=== PATIENT | female | born 1935 | race Caucasian/White ===

== ENCOUNTER 2019-11-15 11:00 | Emergency (ER) | payer OTHER ==
[2019-11-15] MEDS ORDERED: LIDOCAINE 1% 20 ML MDV ONE (12:10)
--- NOTE | 2019-11-15 12:20 | RAD REPORT ---
EXAM DESCRIPTION: CT - Head Brain Wo Cont - 11/15/2019 12:12 pm CLINICAL HISTORY: Fall, right-sided head injury COMPARISON: None. TECHNIQUE: Axial 5 mm thick images of the head were obtained without IV contrast. All CT scans are performed using dose optimization technique as appropriate and may include automated exposure control or mA/KV adjustment according to patient size. FINDINGS: No intracranial hemorrhage, mass, edema or shift of mid-line structures. No acute infarcti on changes seen. No abnormal extra-axial fluid collections. Patient has a mild to moderate atrophy pa ttern with mild chronic ischemic change. Arterial tree calcifications are present. Mastoid air cells and visualized portions of the paranasal sinuses are clear. No skull fracture. Patient has soft tissue injury over the superior lateral margin of the right orbit al rim. IMPRESSION: Atrophy and chronic ischemic changes are present with no acute intracranial finding. Soft tissue injury superolateral right orbital rim with underlying bone intact. No globe or orbital c ontent injury.
--- NOTE | 2019-11-15 12:51 | ER ---
Nurse's Notes [facility] Name: Cecelia Ramires Age: 84 yrs Sex: Female : 1935 Arrival Date: 11/15/2019 Time: 11:01 Bed 9 Private MD: Diagnosis: Laceration with foreign body of right eyelid and periocular area Presentation: 11/15 11:12 Presenting complaint: Child states: was getting out of car, felt herself fall onto iw right side, hit right hip and right side of face and eyebrow area, laceration to right eyebrow area , also c/o throbbing pain, denies LOC, not on blood thinners , pt states she turned quickly and it happened so fast and couldn't stop herself from falling. Care prior to arrival: Injury dressed. Mechanism of Injury: Fall from standing position. Trauma event details: Injury occurred in the [facility]. 11:12 Acuity: WILMER 3 iw 11:12 Method Of Arrival: Wheelchair iw 11:16 Transition of care: patient was not received from another setting of care. Onset of iw symptoms was November 15, 2019. Risk Assessment: Do you want to hurt yourself or someone else? Patient reports no desire to harm self or others. Initial Sepsis Screen: Does the patient meet any 2 criteria? No. Patient's initial sepsis screen is negative. Does the patient have a suspected source of infection? No. Patient's initial sepsis screen is negative. Triage Assessment: 13:00 General: Appears in no apparent distress. Behavior is calm, cooperative. iw Trauma Activation: Not Applicable Physician: ED Physician; Name: ; Notified At: ; Arrived At: Physician: General Surgeon; Name: ; Notified At: ; Arrived At: Physician: Radiology; Name: ; Notified At: ; Arrived At: Physician: Respiratory; Name: ; Notified At: ; Arrived At: Physician: Lab; Name: ; Notified At: ; Arrived At: Historical: - Allergies: 11:15 No Known Allergies; iw - PMHx: 11:15 Hypothyroidism; Glaucoma; breast cancer; iw - PSHx: 11:15 Knee surgery; Hysterectomy; Appendectomy; Mastectomy, Right; Mastectomy, Left; iw - Immunization history:: Adult Immunizations Adult Immunizations up to date. - Coronavirus screen:: The patient has NOT traveled to [place], [place], or [place] in the past 14 days. Proceed with normal triage process as indicated. - Social history:: Smoking status: Patient denies any tobacco usage or history of. - Ebola Screening: : Patient negative for fever greater than or equal to 101.5 degrees Fahrenheit, and additional compatible Ebola Virus Disease symptoms Patient denies exposure to infectious person Patient denies travel to an Ebola-affected area in the 21 days before illness onset No symptoms or risks identified at this time. Screenin:26 Abuse screen: Denies threats or abuse. Denies injuries from another. Nutritional iw screening: No deficits noted. Tuberculosis screening: No symptoms or risk factors identified. Fall Risk Fall in past 12 months (25 points). Assessment: 12:00 General: Appears in no apparent distress. Behavior is calm, cooperative. Pain: iw Complains of pain in right eye and forehead. Neuro: Level of Consciousness is awake, alert, obeys commands, Oriented to person, place, time, situation, Moves all extremities. Full function. Cardiovascular: Patient's skin is warm and dry. Respiratory: Airway is patent Respiratory effort is even, unlabored. Derm: Skin is fragile, is thin. Musculoskeletal: Range of motion: intact in all extremities, Reports pain in right hip. Injury Description: Laceration sustained to inner aspect of right eyebrow, middle aspect of right eyebrow and outer aspect of right eyebrow is full thickness, 2.6 to 7.5 cm long, was sustained 1-2 hours ago. a small amount of bleeding noted at this time. Vital Signs: 11:15 BP 154 / 86; Pulse 70; Resp 16; Temp 98.7; Pulse Ox 95% on R/A; Weight 65.32 kg; Height iw 5 ft. 3 in. (160.02 cm); Pain 7/10; 11:15 Body Mass Index 25.51 (65.32 kg, 160.02 cm) iw Ravindra Coma Score: 11:15 Eye Response: spontaneous(4). Verbal Response: oriented(5). Motor Response: obeys iw commands(6). Total: 15. Trauma Score (Adult): 11:15 Eye Response: spontaneous(1); Verbal Response: oriented(1); Motor Response: obeys iw commands(2); Systolic BP: > 89 mm Hg(4); Respiratory Rate: 10 to 29 per min(4); Ravindra Score: 15; Trauma Score: 12 ED Course: 11:01 Patient arrived in ED. mr 11:14 Triage completed. iw 11:16 Arm band placed on. iw 11:30 Patient has correct armband on for positive identification. iw 11:54 Paula Jiang, RN is Primary Nurse. iw 11:59 Sanjeev Montiel PA is PHCP. jr8 11:59 Norm Smith MD is Attending Physician. jr8 12:00 Assist provider with laceration repair on outer aspect of right eyebrow and middle iw aspect of right eyebrow that was between 2.6 to 7.5 cm using sutures. Set up tray. Performed by Sanjeev WOODWARD Dressed with 4X4s, Neosporin, Patient tolerated well. Patient did not have IV access during this emergency room visit. 12:12 CT Head Brain wo Cont In Process Unspecified. EDMS 12:50 Tino Sepulveda MD is Referral Physician. jr8 Administered Medications: 13:12 Drug: Tetanus-Diphtheria Toxoid Adult 0.5 ml {Dope Pourer: [employer]. Exp: iw 12/25/2019. Lot #: [id number]. } Route: IM; Site: left deltoid; Outcome: 12:50 Discharge ordered by . jrMedardo 13:26 Discharged to home via wheelchair, with family. iw 13:26 Condition: good 13:26 Discharge instructions given to patient, family, Instructed on discharge instructions, follow up and referral plans. medication usage, Demonstrated understanding of instructions, follow-up care, medications, Prescriptions given X 1. 13:27 Patient left the ED. iw Signatures: Dispatcher [employer] [facility] Radha Duarte Paula Jiang, RN RN iw Sanjeev Montiel PA PA jr8 Corrections: (The following items were deleted from the chart) 11:20 11:12 Presenting complaint: Child states: was getting out of car, felt herself fall iw onto right side, hit right hip and right side of face and eyebrow area, also c/o throbbing pain above, denies LOC, not on blood thinners , pt states she turned quickly and it happened so fast and couldn't stop herself from falling iw
--- NOTE | 2019-11-15 12:51 | EDPHYS ---
Physician Documentation [facility] Name: Cecelia Ramires Age: 84 yrs Sex: Female : 1935 Arrival Date: 11/15/2019 Time: 11:01 Bed 9 Private MD: ED Physician Norm Smith HPI: 11/15 12:18 This 84 yrs old Female presents to ER via Wheelchair with complaints of Fall jr8 Injury, Head Injury Without LOC-Adult. 12:18 Details of fall: The patient fell from an upright position, while standing. Onset: The jr8 symptoms/episode began/occurred acutely, today. Associated injuries: The patient sustained injury to the head, laceration, 3 cm(s), of the forehead, pain, tenderness. Severity of symptoms: At their worst the symptoms were moderate, in the emergency department the symptoms have improved. The patient has not experienced similar symptoms in the past. The patient has not recently seen a physician. Stated that she slipped landing on right hip and hitting head. Denies LOC . Historical: - Allergies: 11:15 No Known Allergies; iw - PMHx: 11:15 Hypothyroidism; Glaucoma; breast cancer; iw - PSHx: 11:15 Knee surgery; Hysterectomy; Appendectomy; Mastectomy, Right; Mastectomy, Left; iw - Immunization history:: Adult Immunizations Adult Immunizations up to date. - Coronavirus screen:: The patient has NOT traveled to [place], [place], or [place] in the past 14 days. Proceed with normal triage process as indicated. - Social history:: Smoking status: Patient denies any tobacco usage or history of. - Ebola Screening: : Patient negative for fever greater than or equal to 101.5 degrees Fahrenheit, and additional compatible Ebola Virus Disease symptoms Patient denies exposure to infectious person Patient denies travel to an Ebola-affected area in the 21 days before illness onset No symptoms or risks identified at this time. ROS: 12:18 Eyes: Negative for injury, pain, redness, and discharge, ENT: Negative for injury, jr8 pain, and discharge, Neck: Negative for injury, pain, and swelling, Cardiovascular: Negative for chest pain, palpitations, and edema, Respiratory: Negative for shortness of breath, cough, wheezing, and pleuritic chest pain, Abdomen/GI: Negative for abdominal pain, nausea, vomiting, diarrhea, and constipation, Back: Negative for injury and pain, MS/Extremity: Negative for injury and deformity. 12:18 Skin: Positive for laceration(s). 12:18 Neuro: Positive for headache. Exam: 12:18 Eyes: Pupils equal round and reactive to light, extra-ocular motions intact. Lids and jr8 lashes normal. Conjunctiva and sclera are non-icteric and not injected. Cornea within normal limits. Periorbital areas with no swelling, redness, or edema. ENT: Nares patent. No nasal discharge, no septal abnormalities noted. Tympanic membranes are normal and external auditory canals are clear. Oropharynx with no redness, swelling, or masses, exudates, or evidence of obstruction, uvula midline. Mucous membranes moist. Neck: Trachea midline, no thyromegaly or masses palpated, and no cervical lymphadenopathy. Supple, full range of motion without nuchal rigidity, or vertebral point tenderness. No Meningismus. Cardiovascular: Regular rate and rhythm with a normal S1 and S2. No gallops, murmurs, or rubs. Normal PMI, no JVD. No pulse deficits. Respiratory: Lungs have equal breath sounds bilaterally, clear to auscultation and percussion. No rales, rhonchi or wheezes noted. No increased work of breathing, no retractions or nasal flaring. Abdomen/GI: Soft, non-tender, with normal bowel sounds. No distension or tympany. No guarding or rebound. No evidence of tenderness throughout. Back: No spinal tenderness. No costovertebral tenderness. Full range of motion. Skin: Warm, dry with normal turgor. Normal color with no rashes, no lesions, and no evidence of cellulitis. MS/ Extremity: Pulses equal, no cyanosis. Neurovascular intact. Full, normal range of motion. No pain with palpation to extremities. Large Hematoma noted to right greater tranchantor region. Patient able to ambulate with no pain Neuro: Awake and alert, GCS 15, oriented to person, place, time, and situation. Cranial nerves II-XII grossly intact. Motor strength 5/5 in all extremities. Sensory grossly intact. Cerebellar exam normal. Normal gait. 12:18 Head/face: Noted is a laceration(s), that is deep, 5 cm(s), of the right forehead above eyebrow . Vital Signs: 11:15 BP 154 / 86; Pulse 70; Resp 16; Temp 98.7; Pulse Ox 95% on R/A; Weight 65.32 kg; Height iw 5 ft. 3 in. (160.02 cm); Pain 7/10; 11:15 Body Mass Index 25.51 (65.32 kg, 160.02 cm) iw Ravindra Coma Score: 11:15 Eye Response: spontaneous(4). Verbal Response: oriented(5). Motor Response: obeys iw commands(6). Total: 15. Trauma Score (Adult): 11:15 Eye Response: spontaneous(1); Verbal Response: oriented(1); Motor Response: obeys iw commands(2); Systolic BP: > 89 mm Hg(4); Respiratory Rate: 10 to 29 per min(4); Ravindra Score: 15; Trauma Score: 12 Laceration: 12:49 Wound Repair of 5cm ( 2.0in ) subcutaneous laceration to forehead. Linear shaped.. jr8 Minimal bleeding noted.. Distal neuro/vascular/tendon intact. Anesthesia: Local anesthetic administered with 2 mls of 1% lidocaine. Wound prep: Extensive cleansing with hibiclenz, Particulate matter removal of glass by me, Wound explored extensively. Skin closed with 6 4-0 Prolene using interrupted sutures and sterile technique. Patient tolerated well. MDM: 11:59 Patient medically screened. jr8 12:49 Data reviewed: vital signs, nurses notes, radiologic studies, CT scan. Data jr8 interpreted: Pulse oximetry: on room air is 95 %. Interpretation: normal. Counseling: I had a detailed discussion with the patient and/or guardian regarding: the historical points, exam findings, and any diagnostic results supporting the discharge/admit diagnosis, radiology results, the need for outpatient follow up, a family practitioner, to return to the emergency department if symptoms worsen or persist or if there are any questions or concerns that arise at home. 12:49 Response to treatment: the patient's symptoms have markedly improved after treatment. jr8 13:40 ED course: Close return precautions given for right hip hematoma. Recommended ice jr8 multiple times throughout the day as needed for pain and swelling. Rest and elevated leg. 11/15 11:59 Order name: CT Head Brain wo Cont; Complete Time: 12:22 jr8 11/15 12:00 Order name: Prolene, Sutures; Complete Time: 13:13 jr8 11/15 12:00 Order name: Dressing - Wound; Complete Time: 13:11/15 12:00 Order name: Gloves, Sterile; Complete Time: :11/15 12:00 Order name: Setup Suture Tray; Complete Time: : Administered Medications: 13:12 Drug: Tetanus-Diphtheria Toxoid Adult 0.5 ml {[employer] Operator: [employer]. Exp: iw 12/25/2019. Lot #: [id number]. } Route: IM; Site: left deltoid; Disposition: 16:46 Co-signature as Attending Physician, Norm Smith MD I agree with the assessment and lan plan of care. Disposition: 11/15/19 12:50 Discharged to Home. Impression: Laceration with foreign body of right eyelid and periocular area. - Condition is Stable. - Discharge Instructions: Laceration Care, Adult, Facial Laceration. - Prescriptions for Keflex 500 mg Oral Capsule - take 1 capsule by ORAL route every 8 hours for 5 days; 15 capsule. - Medication Reconciliation Form, Thank You Letter, Antibiotic Education, Prescription Opioid Use form. - Follow up: Tino Sepulveda MD; When: 1 week; Reason: Wound Recheck, Recheck today's complaints, Continuance of care, Staple/Suture removal, Re-evaluation by your physician. - Problem is new. - Symptoms have improved. Signatures: Dispatcher [employer] Norm Almaguer MD MD cha Williams, Irene, Sanjeev Luz RN, PA PA jr8 Corrections: (The following items were deleted from the chart) 12:49 12:18 Head/face: Noted is a laceration(s), that is deep, 3 cm(s), of the right forehead jr8 above eyebrow , jr8 13:04 12:18 Eyes: Pupils equal round and reactive to light, extra-ocular motions intact. Lids jr8 and lashes normal. Conjunctiva and sclera are non-icteric and not injected. Cornea within normal limits. Periorbital areas with no swelling, redness, or edema. ENT: Nares patent. No nasal discharge, no septal abnormalities noted. Tympanic membranes are normal and external auditory canals are clear. Oropharynx with no redness, swelling, or masses, exudates, or evidence of obstruction, uvula midline. Mucous membranes moist. Neck: Trachea midline, no thyromegaly or masses palpated, and no cervical lymphadenopathy. Supple, full range of motion without nuchal rigidity, or vertebral point tenderness. No Meningismus. Cardiovascular: Regular rate and rhythm with a normal S1 and S2. No gallops, murmurs, or rubs. Normal PMI, no JVD. No pulse deficits. Respiratory: Lungs have equal breath sounds bilaterally, clear to auscultation and percussion. No rales, rhonchi or wheezes noted. No increased work of breathing, no retractions or nasal flaring. Abdomen/GI: Soft, non-tender, with normal bowel sounds. No distension or tympany. No guarding or rebound. No evidence of tenderness throughout. Back: No spinal tenderness. No costovertebral tenderness. Full range of motion. Skin: Warm, dry with normal turgor. Normal color with no rashes, no lesions, and no evidence of cellulitis. MS/ Extremity: Pulses equal, no cyanosis. Neurovascular intact. Full, normal range of motion. Neuro: Awake and alert, GCS 15, oriented to person, place, time, and situation. Cranial nerves II-XII grossly intact. Motor strength 5/5 in all extremities. Sensory grossly intact. Cerebellar exam normal. Normal gait. jr8 13:27 12:50 11/15/2019 12:50 Discharged to Home. Impression: Laceration with foreign body of iw right eyelid and periocular area. Condition is Stable. Forms are Medication Reconciliation Form, Thank You Letter, Antibiotic Education, Prescription Opioid Use. Follow up: Tino Sepulveda; When: 1 week; Reason: Wound Recheck, Recheck today's complaints, Continuance of care, Staple/Suture removal, Re-evaluation by your physician. Problem is new. Symptoms have improved. jr8
[2019-11-15] MEDS ORDERED: TETANUS & DIPHTHERIA TOX,ADULT 0.5 ML VIAL ONE (13:00)
[2019-11-15 13:31] VITALS: BP 154/86; TEMP 98.7; O2SAT 95
== END 2019-11-15 13:27 | disposition home or self-care (01) ==
LOC: ER 11:00
PROC: 0JQ10ZZ Repair Face Subcutaneous Tissue and Fascia, Open Approach (ICD-10-PCS; principal; 2019-11-15)
DX: S01.111A Laceration without foreign body of right eyelid and periocular area, initial encounter (principal); W18.00XA Striking against unspecified object with subsequent fall, initial encounter; Y93.89 Activity, other specified; Y92.9 Unspecified place or not applicable; Z23 Encounter for immunization
CPT/HCPCS: 70450; 90471; 90714; 99284

== ENCOUNTER 2023-06-21 19:31 | Emergency (ER) | payer OTHER ==
--- NOTE | 2023-06-21 20:41 | RAD REPORT ---
EXAM DESCRIPTION: CT - Head Brain Wo Cont - 06/21/2023 8:31 pm CLINICAL HISTORY: MENTAL STATUS CHANGE COMPARISON: Head Brain Wo Cont dated 11/15/2019 TECHNIQUE: All CT scans are performed using dose optimization technique as appropriate and may inclu de automated exposure control or mA/KV adjustment according to patient size. FINDINGS: No intracranial hemorrhage, hydrocephalus or extra-axial fluid collection.No areas of brai n edema or evidence of midline shift. Chronic small vessel ischemic changes and cerebral atrophy. The paranasal sinuses and mastoids are clear. The calvarium is intact. IMPRESSION: No acute intracranial abnormality.
--- NOTE | 2023-06-21 20:48 | RAD REPORT ---
EXAM DESCRIPTION: CTStone Protocol - 06/21/2023 8:33 pm CLINICAL HISTORY: Pain;Kidney stones COMPARISON: CT ABD PELVIS W CONTRAST dated 04/16/2009 TECHNIQUE: CT of the abdomen and pelvis was performed. All CT scans are performed using dose optimization technique as appropriate and may include automated exposure control or mA/KV adjustment according to patient size. FINDINGS: Lower chest: Mild right lower lobe bronchiectasis and pleural based thickening which may b e secondary to chronic aspiration. Small nonspecific pulmonary nodules are present. Coronary artery c alcifications. Aortic valve calcifications. Liver: Multiple liver masses identified. The largest is in the right hepatic lobe measuring 5.1 cm. O ther lesions noted with within the right and left hepatic lobe. One of the lesions is clearly benign but the others are most consistent with metastatic disease. Biliary: Cholelithiasis. No CT evidence of acute cholecystitis. Stomach: No significant focal abnormality. Duodenum: No significant focal abnormality. Pancreas: No significant abnormality. Spleen: No significant abnormality. Adrenal: No suspicious lesions. Kidney/ureter: No hydronephrosis. No renal calculi. Retroperitoneum: No retroperitoneal adenopathy. Vascular: No aneurysm. Bowel: Large rectal stool burden.. No bowel obstruction. Peritoneum: No ascites or free air. Small fat containing umbilical hernia. Bladder: Grossly unremarkable. Reproductive: Hysterectomy. 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 Other: n/a IMPRESSION: No acute intra-abdominal or pelvic finding. Moderate rectal stool burden could indicate fecal impaction. Osseous and hepatic metastatic disease identified. No recent/relevant priors available for comparison .
--- OUTSIDE RECORDS SUMMARY | 2023-06-21 20:59 | XMS REPORT | Continuity of Care Document ---
:1935 Author Organization [facility] t Address [address] [facility]. [address] [place] [address] Care Team Providers Name Role Phone Tino Shields Primary Care Physician Umberto Stevenson MD Attending Clinician Mahendra January Attending Clinician Unavailable Anuradha Arenas MD Attending Clinician ANURADHA ARENAS Attending Clinician Unavailable Doctor Unassigned, [place] Attending Clinician Unavailable ELIZABETH CURIEL Attending Clinician Unavailable Elizabeth Curiel PA-C Attending Clinician DANNA GAVIN Attending Clinician Unavailable APOLLO NOWAK Attending Clinician Unavailable JASS THOMPSON Attending Clinician Unavailable MD JASS THOMPSON Attending Clinician Unavailable JASS THOMPSON Admitting Clinician Unavailable MD JASS THOMPSON Admitting Clinician Unavailable Payers Payer Name Policy Type Policy Number Effective Date Expiration Date S ource Problems Condition Condition Condition Status Onset Resolution Last Treating Co mments Source Name Details Category Date Date Treatment Clinician Date Vaginal Vaginal Disease Active [facility] itching itching 06-28 00:00: [facility]osp[facility] 00 l Yeast Yeast Disease Active [facility] detected detected 06-28 00:00: Hospita 00 l Bronchiect Bronchiect Disease Active M ethodi asis asis 02-20 00:00: Hospita 00 l Pneumonia Pneumonia Disease Active 2021-0 [facility]-03 [facility] 00:00: [facility]ospita 00 l Metastatic Metastatic Disease Active M ethodi breast breast 5-03 st cancer cancer 00:00: Hospita 00 l Malignant Malignant Disease Active 2018-10 Met hodi neoplasm neoplasm 1-12 st of breast of breast 00:00: Hosp malena in female, in female, 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 Malignant Malignant Disease Active Met hodi neoplasm neoplasm 2-08 st metastatic metastatic 00:00: Ho spita to bone to bone 00 l No known No known Disease Unive rs active active ity of problems problems [facility] Allergies, Adverse Reactions, Alerts Allergy Allergy Status Severity Reaction(s) Onset Inactive Treating Comm ents Source Name Type Date Date Clinician NO KNOWN Drug Active Univers ALLERGIE Class ity of S [facility] Social History Social Habit Start Date Stop Date Quantity Comments Source Exposure to Not sure University of SARS-CoV-2 (event) [place] [facility] [place] History SDOH University o f Alcohol Frequency [facility] edical Branch History SDOH University o f Alcohol Std Drinks [facility] History SDOH University o f Alcohol Binge [place] [facility] History of tobacco Current smoker [facility] History of Social 2023-06-01 2023-06-[address] function 00:00:00 00:00:00 Hospital Alcohol intake 2023-05-14 2023-05-14 Current drinker [facility] dist 00:00:00 00:00:00 of [facility] (finding) Tobacco use and 2021-05-29 2021-05-29 Smokeless Universit y of exposure 00:00:00 00:00:00 tobacco non-user [facility] [place] dical [place] Alcohol Comment 2021-05-29 2021-05-29 one glass of Univers ity of 00:00:00 00:00:00 wine a day [facility] Cigarettes smoked 2018-09-02 2018-09-[address] current (pack per 00:00:00 00:00:00 Hospita l day) - Reported Cigarette 2018-09-02 2018-09-02 [facility] pack-years 00:00:00 00:00:00 Hospital Sex Assigned At [birth year] [facility] 00:00:00 00:00:00 Hospital Smoking Status Start Date Stop Date Source Never smoked tobacco [facility] Ex-smoker 2018-09-02 00:00:00 2018-09-02 00:00:00 [facility] Medications Ordered Filled Start Stop Current Ordering Indication Dosage Frequency Signature Comments Components Source Medication Medication Date Date Medication? Clinician (SIG) Name Name cephalexin 2020-10 Yes Methodi (KEFLEX) 2-23 st 500 MG 00:00: Hospita capsule 00 l cephALEXin 2020-101- No [id number] 500mg Take 1 Univers 500 mg 12-11-31 capsule by ity of capsule 00:00: 05:59 mouth [place] 00 :00 every 6 Medical (six) Branch hours for 7 days. sertraline 2020-10 Yes [facility] (ZOLOFT) 25 2-12 st MG tablet 00:00: Hospita 00 l sodium 2020-10 Yes Univers chloride 7% 1-19 ity of nebulizer 00:00: [place] solution 00 [facility] Branch sodium 2020-10 Yes Univers chloride 7% 1-19 ity of nebulizer 00:00: [place] solution 00 [facility] Branch sodium 2020-10 Yes Methodi chloride 1-19 st (HYPER-ALTAGRACIA) 00:00: Hospit a 7 % 00 l solution for nebulizatio n COMBIGAN Yes Univers 0.2-0.5 % 9-28 ity of ophthalmic 00:00: [place] drops 00 [facility] Branch colesevelam 0 Yes Univer s 625 mg 9-28 ity of tablet 00:00: [place] 00 Medical Branch COMBIGAN Yes Univers 0.2-0.5 % 9-28 ity of ophthalmic 00:00: [place] drops [facility] Branch colesevelam Yes Univer s 625 mg 9-28 ity of tablet 00:00: [place] 00 [facility] Branch fluconazole 2020- No [id number] 150mg Take 1 Univers 150 mg 9-10 09-15 tablet by ity of tablet 00:00: 04:59 mouth [place] 00 :00 every 72 Medical (seventy-t Branch wo) hours for 2 doses. fluconazole 2020- No [id number] 150mg Take 1 Univers 150 mg 9-10 09-15 tablet by ity of tablet 00:00: 04:59 mouth [place] 00 :00 every 72 Medical (seventy-t Branch wo) hours for 2 doses. fluconazole 2020-2020- No [id number] 150mg Take 1 Univers 150 mg 9-10 09-15 tablet by ity of tablet 00:00: 04:59 mouth [place] 00 :00 every 72 Medical (seventy-t Branch wo) hours for 2 doses. amLODIPine 2020-0 2020- No 5mg Take 5 mg U nivers 2.5 mg 8-18 08-18 by mouth. ity of tablet 22:07: 00:00 [place] 02 :00 Medical Branch amLODIPine 2020-0 2020- No 5mg Take 5 mg U nivers 2.5 mg 8-18 08-18 by mouth. ity of tablet 22:07: 00:00 [place] 02 :00 Medical Branch nystatin 2020-0 Yes [id number] Apply to U nivers 100,000 8-11 area(s) 2 ity of unit/gram 00:00: (two) [place] cream 00 times Medical daily. Branch fluconazole Yes TAKE 1 Univ ers 150 mg 8-11 TABLET BY ity of tablet 00:00: MOUTH ONCE [place] 00 NOW FOR 1 Medical DOSE. Branch SERTraline 0 Yes Univers 25 mg 8-11 ity of tablet 00:00: [place] 00 Medical Branch nystatin 2020-0 Yes [id number] Apply to U nivers 100,000 8-11 area(s) 2 ity of unit/gram 00:00: (two) [place] cream 00 times Medical daily. Branch fluconazole 2020-0 Yes TAKE 1 Univ ers 150 mg 8-11 TABLET BY ity of tablet 00:00: MOUTH ONCE [place] 00 NOW FOR 1 Medical DOSE. Branch SERTraline 2020-0 Yes Univers 25 mg 8-11 ity of tablet 00:00: [place] 00 Medical Branch nystatin 2020-0 Yes [id number] Apply to U nivers 100,000 8-11 area(s) 2 ity of unit/gram 00:00: (two) [place] cream 00 times Medical daily. Branch nystatin 2020-0 Yes [id number] Apply to U nivers 100,000 8-11 area(s) 2 ity of unit/gram 00:00: (two) [place] cream 00 times Medical daily. Branch nystatin 2020-0 Yes [id number] Apply to U nivers 100,000 8-11 area(s) 2 ity of unit/gram 00:00: (two) [place] cream 00 times Medical daily. Branch fluconazole 2020-0 Yes TAKE 1 Univ ers 150 mg 8-11 TABLET BY ity of tablet 00:00: MOUTH ONCE [place] 00 NOW FOR 1 Medical DOSE. Branch SERTraline 2020-0 Yes Univers 25 mg 8-11 ity of tablet 00:00: [place] 00 Medical Branch nystatin 1-0 Yes [id number] Apply to U nivers 100,000 8-11 area(s) 2 ity of unit/gram 00:00: (two) [place] cream 00 times Medical daily. Branch fluconazole 2020-0 Yes TAKE 1 Univ ers 150 mg 8-11 TABLET BY ity of tablet 00:00: MOUTH ONCE [place] 00 NOW FOR 1 Medical DOSE. Branch SERTraline 2020-0 Yes Univers 25 mg 8-11 ity of tablet 00:00: [place] 00 Medical Branch nystatin 2020-0 Yes [id number] Apply to U nivers 100,000 8-11 area(s) 2 ity of unit/gram 00:00: (two) [place] cream 00 times Medical daily. Branch fluconazole 2020-0 Yes TAKE 1 Univ ers 150 mg 8-11 TABLET BY ity of tablet 00:00: MOUTH ONCE [place] 00 NOW FOR 1 Medical DOSE. Branch SERTraline 2020-0 Yes Univers 25 mg 8-11 ity of tablet 00:00: [place] 00 Medical Branch nystatin 1-0 Yes [id number] Apply to U nivers 100,000 8-11 area(s) 2 ity of unit/gram 00:00: (two) [place] cream 00 times Medical daily. Branch fluconazole 2020-0 Yes TAKE 1 Univ ers 150 mg 8-11 TABLET BY ity of tablet 00:00: MOUTH ONCE [place] 00 NOW FOR 1 Medical DOSE. Branch SERTraline 2020-0 Yes Univers 25 mg 8-11 ity of tablet 00:00: [place] 00 Medical Branch nystatin 2021-0 Yes [id number] Apply to U nivers 100,000 8-11 area(s) 2 ity of unit/gram 00:00: (two) [place] cream 00 times Medical daily. Branch fluconazole 2020-0 Yes TAKE 1 Univ ers 150 mg 8-11 TABLET BY ity of tablet 00:00: MOUTH ONCE [place] 00 NOW FOR 1 Medical DOSE. Branch SERTraline 2021-0 Yes Univers 25 mg 8-11 ity of tablet 00:00: [place] 00 Medical Branch nystatin 2020-0 Yes [id number] Apply to U nivers 100,000 8-11 area(s) 2 ity of unit/gram 00:00: (two) [place] cream 00 times Medical daily. Branch fluconazole 2020-0 Yes TAKE 1 Univ ers 150 mg 8-11 TABLET BY ity of tablet 00:00: MOUTH ONCE [place] 00 NOW FOR 1 Medical DOSE. Branch SERTraline 2020-0 Yes Univers 25 mg 8-11 ity of tablet 00:00: [place] 00 Medical Branch nystatin 2020-0 Yes [id number] Apply to U nivers 100,000 8-11 area(s) 2 ity of unit/gram 00:00: (two) [place] cream 00 times Medical daily. Branch fluconazole 2020-0 Yes TAKE 1 Univ ers 150 mg 8-11 TABLET BY ity of tablet 00:00: MOUTH ONCE [place] 00 NOW FOR 1 Medical DOSE. Branch SERTraline 2020-0 Yes Univers 25 mg 8-11 ity of tablet 00:00: [place] 00 Medical Branch nystatin 2020-0 Yes [id number] Apply to U nivers 100,000 8-11 area(s) 2 ity of unit/gram 00:00: (two) [place] cream 00 times Medical daily. Branch fluconazole 2020-0 Yes TAKE 1 Univ ers 150 mg 8-11 TABLET BY ity of tablet 00:00: MOUTH ONCE [place] NOW FOR 1 Medical DOSE. Branch SERTraline 2020-0 Yes Univers 25 mg 8-11 ity of tablet 00:00: [place] 00 Medical Branch nystatin 2020-0 Yes [id number] Apply to U nivers 100,000 8-11 area(s) 2 ity of unit/gram 00:00: (two) [place] cream 00 times Medical daily. Branch fluconazole 2020-0 Yes TAKE 1 Univ ers 150 mg 8-11 TABLET BY ity of tablet 00:00: MOUTH ONCE [place] 00 NOW FOR 1 Medical DOSE. Branch SERTraline 2020-0 Yes Univers 25 mg 8-11 ity of tablet 00:00: [place] 00 Medical Branch nystatin 202-0 Yes [id number] Apply to U nivers 100,000 8-11 area(s) 2 ity of unit/gram 00:00: (two) [place] cream 00 times Medical daily. Branch fluconazole 2021-0 Yes TAKE 1 Univ ers 150 mg 8-11 TABLET BY ity of tablet 00:00: MOUTH ONCE [place] 00 NOW FOR 1 Medical DOSE. Branch SERTraline Yes Univers 25 mg 8-11 ity of tablet 00:00: [place] 00 Medical Branch nystatin Yes [id number] Apply to [facility] 100,000 8-11 area(s) 2 ity of unit/gram 00:00: (two) [place] cream 00 times Medical daily. Branch fluconazole Yes TAKE 1 Univ ers 150 mg 8-11 TABLET BY ity of tablet 00:00: MOUTH ONCE [place] 00 NOW FOR 1 Medical DOSE. Branch SERTraline Yes Univers 25 mg 8-11 ity of tablet 00:00: [place] 00 Medical Branch fluconazole Yes TAKE 1 Meth malena (DIFLUCAN) 8-[address] 150 MG 00:00: MOUTH ONCE Hospi ta tablet 00 NOW FOR 1 l DOSE. nystatin Yes Apply Methodi (MYCOSTATIN 8-[address] ) 100,000 00:00: Hospita unit/gram 00 l cream fluconazole 1- No [id number] 150mg Take 1 Univers 150 mg 8-11 08-12 tablet by ity of tablet 00:00: 04:59 [place] 00 :[place] now for 1 Medical dose. Branch fluconazole 2020- No [id number] 150mg Take 1 Univers 150 mg 8-11 08-12 tablet by ity of tablet 00:00: 04:59 [place] 00 :[place] now for 1 Medical dose. Branch tamoxifen Yes TAKE 1 Univer s 20 mg 8-05 TABLET (20 ity of tablet 00:00: MG TOTAL) 00 BY MOUTH Medical DAILY FOR Branch 360 DOSES. tamoxifen Yes TAKE 1 Univer s 20 mg 8-05 TABLET (20 ity of tablet 00:00: MG TOTAL) 00 BY MOUTH Medical DAILY FOR Branch 360 DOSES. tamoxifen Yes TAKE 1 Univer s 20 mg 8-05 TABLET (20 ity of tablet 00:00: MG TOTAL) 00 BY MOUTH Medical DAILY FOR Branch 360 DOSES. tamoxifen Yes TAKE 1 Univer s 20 mg 8-05 TABLET (20 ity of tablet 00:00: MG TOTAL) BY MOUTH Medical DAILY FOR Branch 360 DOSES. tamoxifen Yes TAKE 1 Univer s 20 mg 8-05 TABLET (20 ity of tablet 00:00: MG TOTAL) BY MOUTH Medical DAILY FOR Branch 360 DOSES. tamoxifen Yes TAKE 1 Univer s 20 mg 8-05 TABLET (20 ity of tablet 00:00: MG TOTAL) BY MOUTH Medical DAILY FOR Branch 360 DOSES. tamoxifen Yes TAKE 1 Univer s 20 mg 8-05 TABLET (20 ity of tablet 00:00: MG TOTAL) BY MOUTH Medical DAILY FOR Branch 360 DOSES. tamoxifen Yes TAKE 1 Univer s 20 mg 8-05 TABLET (20 ity of tablet 00:00: MG TOTAL) BY MOUTH Medical DAILY FOR Branch 360 DOSES. tamoxifen Yes TAKE 1 Univer s 20 mg 8-05 TABLET (20 ity of tablet 00:00: MG TOTAL) BY MOUTH Medical DAILY FOR Branch 360 DOSES. tamoxifen Yes TAKE 1 Univer s 20 mg 8-05 TABLET (20 ity of tablet 00:00: MG TOTAL) BY MOUTH Medical DAILY FOR Branch 360 DOSES. tamoxifen Yes TAKE 1 Univer s 20 mg 8-05 TABLET (20 ity of tablet 00:00: MG TOTAL) BY MOUTH Medical DAILY FOR Branch 360 DOSES. tamoxifen Yes TAKE 1 Univer s 20 mg 8-05 TABLET (20 ity of tablet 00:00: MG TOTAL) BY MOUTH Medical DAILY FOR Branch 360 DOSES. tamoxifen Yes TAKE 1 Univer s 20 mg 8-05 TABLET (20 ity of tablet 00:00: MG TOTAL) BY MOUTH Medical DAILY FOR Branch 360 DOSES. tamoxifen Yes TAKE 1 Univer s 20 mg 8-05 TABLET (20 ity of tablet 00:00: MG TOTAL) BY MOUTH Medical DAILY FOR Branch 360 DOSES. tamoxifen Yes TAKE 1 Univer s 20 mg 8-05 TABLET (20 ity of tablet 00:00: MG TOTAL) BY MOUTH Medical DAILY FOR Branch 360 DOSES. PREMARIN Yes APPLY Univers 0.625 8-03 TOPICALLY ity of mg/gram 00:00: DAILY [place] cream 00 Medical Branch PREMARIN 0 Yes APPLY Univers 0.625 8-03 TOPICALLY ity of mg/gram 00:00: DAILY [place] cream [facility] PREMARIN 0 Yes APPLY Univers 0.625 8-03 TOPICALLY ity of mg/gram 00:00: DAILY [place] cream [facility] PREMARIN 2020-0 Yes APPLY Univers 0.625 8-03 TOPICALLY ity of mg/gram 00:00: DAILY [place] cream [facility] PREMARIN 2020-0 Yes APPLY Univers 0.625 8-03 TOPICALLY ity of mg/gram 00:00: DAILY [place] cream [facility] PREMARIN 2020-0 Yes APPLY Univers 0.625 8-03 TOPICALLY ity of mg/gram 00:00: DAILY [place] cream [facility] PREMARIN 0 Yes APPLY Univers 0.625 8-03 TOPICALLY ity of mg/gram 00:00: DAILY [place] cream [facility] PREMARIN 0 Yes APPLY Univers 0.625 8-03 TOPICALLY ity of mg/gram 00:00: DAILY [place] cream [facility] PREMARIN 2020-0 Yes APPLY Univers 0.625 8-03 TOPICALLY ity of mg/gram 00:00: DAILY [place] cream 00 [facility] PREMARIN 2020-0 Yes APPLY Univers 0.625 8-03 TOPICALLY ity of mg/gram 00:00: DAILY [place] cream 00 [facility] PREMARIN 2020-0 Yes APPLY Univers 0.625 8-03 TOPICALLY ity of mg/gram 00:00: DAILY [place] cream 00 [facility] PREMARIN 2020-0 Yes APPLY Univers 0.625 8-03 TOPICALLY ity of mg/gram 00:00: DAILY [place] cream 00 [facility] PREMARIN 2020-0 Yes APPLY Univers 0.625 8-03 TOPICALLY ity of mg/gram 00:00: DAILY [place] cream 00 [facility] PREMARIN 2020-0 Yes APPLY Univers 0.625 8-03 TOPICALLY ity of mg/gram 00:00: DAILY [place] cream 00 [facility] PREMARIN 2020-0 Yes APPLY Univers 0.625 8-03 TOPICALLY ity of mg/gram 00:00: DAILY [place] cream 00 [facility] conjugated 2020-0 Yes APPLY Method i estrogens 8-[address] (Premarin) 00:00: DAILY Hospit a 0.625 00 l mg/gram vaginal cream sucralfate 2020-0 Yes TAKE 10ML Un steph 100 mg/mL 7-21 BY MOUTH ity of suspension 00:00: TWICE [place] 00 DAILY. Medical Branch sucralfate 1-0 Yes 1g Take 1 g Uni vers 100 mg/mL 7-21 by mouth. ity o f suspension 00:00: [place] 00 Medical Branch sucralfate 2020-0 Yes TAKE 10ML Un steph 100 mg/mL 7-21 BY MOUTH ity of suspension 00:00: TWICE [place] 00 DAILY. Medical Branch sucralfate 2020-0 Yes 1g Take 1 g Uni vers 100 mg/mL 7-21 by mouth. ity o f suspension 00:00: 00 Medical Branch sucralfate 2020-0 Yes TAKE 10ML Un steph 100 mg/mL 7-21 BY MOUTH ity of suspension 00:00: TWICE 00 DAILY. Medical Branch sucralfate 2020-0 Yes 1g Take 1 g Uni vers 100 mg/mL 7-21 by mouth. ity o f suspension 00:00: 00 Medical Branch sucralfate 2020-0 Yes TAKE 10ML Un steph 100 mg/mL 7-21 BY MOUTH ity of suspension 00:00: TWICE 00 DAILY. Medical Branch sucralfate 2020-0 Yes 1g Take 1 g Uni vers 100 mg/mL 7-21 by mouth. ity o f suspension 00:00: 00 Medical Branch sucralfate 2020-0 Yes TAKE 10ML Un steph 100 mg/mL 7-21 BY MOUTH ity of suspension 00:00: TWICE 00 DAILY. Medical Branch sucralfate 2020-0 Yes 1g Take 1 g Uni vers 100 mg/mL 7-21 by mouth. ity o f suspension 00:00: 00 Medical Branch sucralfate 2020-0 Yes TAKE 10ML Un steph 100 mg/mL 7-21 BY MOUTH ity of suspension 00:00: TWICE 00 DAILY. Medical Branch sucralfate 2020-0 Yes 1g Take 1 g Uni vers 100 mg/mL 7-21 by mouth. ity o f suspension 00:00: 00 Medical Branch sucralfate 2020-0 Yes TAKE 10ML Un steph 100 mg/mL 7-21 BY MOUTH ity of suspension 00:00: TWICE [place] 00 DAILY. Medical Branch sucralfate 2021-0 Yes 1g Take 1 g Uni vers 100 mg/mL 7-21 by mouth. ity o f suspension 00:00: 00 Medical Branch sucralfate 2021-0 Yes TAKE 10ML Un steph 100 mg/mL 7-21 BY MOUTH ity of suspension 00:00: TWICE [place] 00 DAILY. Medical Branch sucralfate 1-0 Yes 1g Take 1 g Uni vers 100 mg/mL 7-21 by mouth. ity o f suspension 00:00: 00 Medical Branch sucralfate 2021-0 Yes TAKE 10ML Un steph 100 mg/mL 7-21 BY MOUTH ity of suspension 00:00: TWICE [place] 00 DAILY. Medical Branch sucralfate 2021-0 Yes 1g Take 1 g Uni vers 100 mg/mL 7-21 by mouth. ity o f suspension 00:00: Medical Branch sucralfate 1-0 Yes TAKE 10ML Un steph 100 mg/mL 7-21 BY MOUTH ity of suspension 00:00: TWICE [place] 00 DAILY. Medical Branch sucralfate 1-0 Yes 1g Take 1 g Uni vers 100 mg/mL 7-21 by mouth. ity o f suspension 00:00: Medical Branch sucralfate 1-0 Yes TAKE 10ML Un steph 100 mg/mL 7-21 BY MOUTH ity of suspension 00:00: TWICE [place] 00 DAILY. Medical Branch sucralfate 1-0 Yes 1g Take 1 g Uni vers 100 mg/mL 7-21 by mouth. ity o f suspension 00:00: Medical Branch sucralfate 2021-0 Yes TAKE 10ML Un steph 100 mg/mL 7-21 BY MOUTH ity of suspension 00:00: TWICE [place] 00 DAILY. Medical Branch sucralfate 1-0 Yes 1g Take 1 g Uni vers 100 mg/mL 7-21 by mouth. ity o f suspension 00:00: Medical Branch sucralfate 1-0 Yes TAKE 10ML Un steph 100 mg/mL 7-21 BY MOUTH ity of suspension 00:00: TWICE [place] 00 DAILY. Medical Branch sucralfate 1-0 Yes 1g Take 1 g Uni vers 100 mg/mL 7-21 by mouth. ity o f suspension 00:00: [facility] sucralfate Yes 1g Q.5D TAKE 10 ML M ethodi (CARAFATE) 7-21 ([address] 100 mg/mL 00:00: TOTAL) BY Hos leslie suspension 00 MOUTH 2 l (TWO) TIMES A DAY. TREGY Yes 1{puff} Inhale 1 Uni vers ELLIPTA 6-29 Puff ity of 100-62.5-25 00:00[place]. [place] mcg [facility] Yes 1{puff} Inhale 1 Uni vers ELLIPTA 6-29 Puff ity of 100-62.5-25 00:00: daily. [place] mcg [facility] Yes 1{puff} Inhale 1 Uni vers ELLIPTA 6-29 Puff ity of 100-62.5-25 00:00: daily. [place] mcg [facility] Yes 1{puff} Inhale 1 Uni vers ELLIPTA 6-29 Puff ity of 100-62.5-25 00:00: daily. [place] mcg Ds[facility] Yes 1{puff} Inhale 1 Uni vers ELLIPTA 6-29 Puff ity of 100-62.5-25 00:00: daily. [place] mcg Ds[facility] Yes 1{puff} Inhale 1 Uni vers ELLIPTA 6-29 Puff ity of 100-62.5-25 00:00: daily. [place] mcg [facility] Yes 1{puff} Inhale 1 Uni vers ELLIPTA 6-29 Puff ity of 100-62.5-25 00:00: daily. [place] mcg [facility] Yes 1{puff} Inhale 1 Uni vers ELLIPTA 6-29 Puff ity of 100-62.5-25 00:00: daily. [place] mcg [facility] Yes 1{puff} Inhale 1 Uni vers ELLIPTA 6-29 Puff ity of 100-62.5-25 00:00: daily. [place] mcg DsDv 00 Medical Branch TRELEGY Yes 1{puff} Inhale 1 Uni vers ELLIPTA 6-29 Puff ity of 100-62.5-25 00:00: daily. [place] mcg DsDv 00 Medical Branch TRELEGY Yes 1{puff} Inhale 1 Uni vers ELLIPTA 6-29 Puff ity of 100-62.5-25 00:00: daily. [place] mcg DsDv Medical Branch fluticasone Yes 1{puff} Inhale 1 Methodi -umeclidin- 6-[address] [facility] 00:00: Hospita (Trelegy 00 l Ellipta) 100-62.5-25 mcg blister with device powder for inhalation amLODIPine Yes 5mg QD Take 5 mg Me thodi (NORVASC) 6-[address] 2.5 mg 09:37: daily. Hospita tablet 24 l brinzolamid 2020- No INSTILL 1 Univers e 1 % 6-28 08-18 DROP INTO ity of ophthalmic 00:00: 00:00 RIGHT E[place] suspension 00 :00 TWICE A Medica l drops DAY Branch brinzolamid 2020- No INSTILL 1 Univers e 1 % 6-28 08-18 DROP INTO ity of ophthalmic 00:00: 00:00 RIGHT E[place] suspension 00 :00 TWICE A Medica l drops DAY Branch COMBIGAN 2020- No INSTILL 1 Uni vers 0.2-0.5 % 6-26 08-18 DROP INTO ity of ophthalmic 00:00: 00:00 BOTH EYES [place] drops 00 :00 TWICE A Medical DAY Branch colesevelam 2020- No 625mg Take 625 Univers 625 mg 6-26 08-18 mg by ity of tablet 00:00: 00:00 mouth 2 [place] 00 :00 (two) Medical times Branch daily. COMBIGAN 2020- No INSTILL 1 Uni vers 0.2-0.5 % 6-26 08-18 DROP INTO ity of ophthalmic 00:00: 00:00 BOTH EYES [place] drops 00 :00 TWICE A Medical DAY Branch colesevelam 2020- No 625mg Take 625 Univers 625 mg 04-13 08-18 mg by ity of tablet 00:00: 00:00 mouth 2 [place] 00 :00 (two) Medical times Branch daily. tigecycline 2020-2020- No 25mg 25 mg. Uni vers injection 04-10 ity of 00:00: 04:59 [place] 00 :00 Medical Branch sodium 2020-0 2021- No 5mL 5 mL. Univers chloride 04-10 ity of 0.9 % Syrg 00:00: 04:59 [place] 00 :00 Medical Branch tigecycline 2020-0 2021- No 25mg 25 mg. Uni vers injection 04-10 ity of 00:00: 04:59 [place] 00 :00 Medical Branch sodium 2020-0 2021- No 5mL 5 mL. Univers chloride 04-10 ity of 0.9 % Syrg 00:00: 04:59 [place] 00 :00 Medical Branch tigecycline 2020-0 2021- No 25mg 25 mg. Uni vers injection 04-10 ity of 00:00: 04:59 [place] 00 :00 Medical Branch sodium 2020-0 2021- No 5mL 5 mL. Univers chloride 04-10 ity of 0.9 % Syrg 00:00: 04:59 [place] 00 :00 Medical Branch tigecycline 2020-0 2021- No 25mg 25 mg. Uni vers injection 04-10 ity of 00:00: 04:59 [place] 00 :00 Medical Branch sodium 2020-0 2021- No 5mL 5 mL. Univers chloride 04-10 ity of 0.9 % Syrg 00:00: 04:59 [place] 00 :00 Medical Branch tigecycline 2020-0 2021- No 25mg 25 mg. Uni vers injection 04-10 ity of 00:00: 04:59 [place] 00 :00 Medical Branch sodium 2020-0 2021- No 5mL 5 mL. Univers chloride 04-10 ity of 0.9 % Syrg 00:00: 04:59 [place] 00 :00 Medical Branch tigecycline 2020-0 2021- No 25mg 25 mg. Uni vers injection 04-10 ity of 00:00: 04:59 [place] 00 :00 Medical Branch sodium 2020-0 2020- No 5mL 5 mL. Univers chloride 04-10 ity of 0.9 % Syrg 00:00: 04:59 [place] 00 :00 Medical Branch tigecycline 2020-2020- No 25mg 25 mg. Uni vers injection 04-10 ity of 00:00: 04:59 [place] 00 :00 Medical Branch sodium 2020-0 2020- No 5mL 5 mL. Univers chloride 04-10 ity of 0.9 % Syrg 00:00: 04:59 [place] 00 :00 Medical Branch tigecycline 2020- No 25mg 25 mg. Uni vers injection 04-10 ity of 00:00: 04:59 [place] 00 :00 Medical Branch sodium 2020-0 2020- No 5mL 5 mL. Univers chloride 04-10 ity of 0.9 % Syrg 00:00: 04:59 [place] 00 :00 Medical Branch tigecycline 2020- No 25mg 25 mg. Uni vers injection 04-10 ity of 00:00: 04:59 [place] 00 :00 Medical Branch sodium 2020-0 2020- No 5mL 5 mL. Univers chloride 04-10 ity of 0.9 % Syrg 00:00: 04:59 [place] 00 :00 Medical Branch 0.9 % 2020- No Inject Univers sodium 04-10 intravenou ity of chloride 00:00: 00:00 sly. [place] (NACL 0.9%, 00 :00 Medical NS,) IV Branch infusion EPINEPHrine 2020- No .3mg 0.3 mg by Univers , PF, 04-10 Intramuscu ity of 1:1,000, 1 00:00: 00:00 lar route. [place] mg/mL, 1 00 :00 Medical mg/mL (1 Branch mL) injection heparin 2020- No 300U 300 Units. Uni vers lock flush 04-10 ity of 100 unit/mL 00:00: 00:00 [place] injection 00 :00 Medical Branch 0.9 % 2020- No Inject Univers sodium 04-10 intravenou ity of chloride 00:00: 00:00 sly. [place] (NACL 0.9%, 00 :00 Medical NS,) IV Branch infusion EPINEPHrine 2020- No .3mg 0.3 mg by Yvette , PF, 04-10 Intramuscu ity of 1:1,000, 1 00:00: 00:00 lar route. [place] mg/mL, 1 00 :00 Medical mg/mL (1 Branch mL) injection heparin 2020- No 300U 300 Units. Uni vers lock flush 04-10 ity of 100 unit/mL 00:00: 00:00 [place] injection 00 :00 Medical Branch amLODIPine Yes TAKE 2 Unive rs 2.5 mg 5-28 TABLETS BY ity of tablet 00:00: MOUTH IN [place] [address] THE Medical MORNING Branch AND 1 TABLET AT NIGHT amLODIPine 0 Yes TAKE 2 Unive rs 2.5 mg 5-28 TABLETS BY ity of tablet 00:00: MOUTH IN [place] [address] THE Medical MORNING Branch AND 1 TABLET AT NIGHT amLODIPine 0 Yes TAKE 2 Unive rs 2.5 mg 5-28 TABLETS BY ity of tablet 00:00: MOUTH IN [place] [address] THE Medical MORNING Branch AND 1 TABLET AT NIGHT amLODIPine 0 Yes TAKE 2 Unive rs 2.5 mg 5-28 TABLETS BY ity of tablet 00:00: MOUTH IN [place] [address] THE Medical MORNING Branch AND 1 TABLET AT NIGHT amLODIPine 2020-0 Yes TAKE 2 Unive rs 2.5 mg 5-28 TABLETS BY ity of tablet 00:00: MOUTH IN [place] [address] THE Medical MORNING Branch AND 1 TABLET AT NIGHT amLODIPine 2020-0 Yes TAKE 2 Unive rs 2.5 mg 5-28 TABLETS BY ity of tablet 00:00: MOUTH IN [place] [address] THE Medical MORNING Branch AND 1 TABLET AT NIGHT amLODIPine 2020-0 Yes TAKE 2 Unive rs 2.5 mg 5-28 TABLETS BY ity of tablet 00:00: MOUTH IN [place] [address] THE Medical MORNING Branch AND 1 TABLET AT NIGHT amLODIPine 2020-0 Yes TAKE 2 Unive rs 2.5 mg 5-28 TABLETS BY ity of tablet 00:00: MOUTH IN [place] [address] THE Medical MORNING Branch AND 1 TABLET AT NIGHT amLODIPine 2020-0 Yes TAKE 2 Unive rs 2.5 mg 5-28 TABLETS BY ity of tablet 00:00: MOUTH IN [place] [address] THE Medical MORNING Branch AND 1 TABLET AT NIGHT amLODIPine 2020-0 Yes TAKE 2 Unive rs 2.5 mg 5-28 TABLETS BY ity of tablet 00:00: MOUTH IN [place] [address] THE Medical MORNING Branch AND 1 TABLET AT NIGHT amLODIPine 2020-0 Yes TAKE 2 Unive rs 2.5 mg 5-28 TABLETS BY ity of tablet 00:00: MOUTH IN [place] [address] THE Medical MORNING Branch AND 1 TABLET AT NIGHT amLODIPine 2020-0 Yes TAKE 2 Unive rs 2.5 mg 5-28 TABLETS BY ity of tablet 00:00: MOUTH IN [place] [address] THE Medical MORNING Branch AND 1 TABLET AT NIGHT amLODIPine 2020-0 Yes TAKE 2 Unive rs 2.5 mg 5-28 TABLETS BY ity of tablet 00:00: MOUTH IN [place] [address] THE Medical MORNING Branch AND 1 TABLET AT NIGHT amLODIPine 2020-0 Yes TAKE 2 Unive rs 2.5 mg 5-28 TABLETS BY ity of tablet 00:00: MOUTH IN [place] [address] THE Medical MORNING Branch AND 1 TABLET AT NIGHT amLODIPine 2020-0 Yes TAKE 2 Unive rs 2.5 mg 5-28 TABLETS BY ity of tablet 00:00: MOUTH IN [place] [address] THE Medical MORNING Branch AND 1 TABLET AT NIGHT cefUROXime 2020-0 2020- No 250mg Take 250 U nivers 250 mg 5-26 08-18 mg by ity of tablet 00:00: 00:00 mouth 2 [place] 00 :00 ([facility]) Medical times [place] daily. cefUROXime 2020-0 2020- No 250mg Take 250 U nivers 250 mg 5-26 08-18 mg by ity of tablet 00:00: 00:00 mouth 2 [place] 00 :00 ([facility]) Medical times [place] daily. losartan 25 Yes 25mg Take 25 mg Univers mg tablet 5-25 by mouth ity of 00:00: daily. [address] losartan 25 2020-0 Yes 25mg Take 25 mg Univers mg tablet 5-25 by mouth ity of 00:00: daily. [address] losartan 25 2020-0 Yes 25mg Take 25 mg Univers mg tablet 5-25 by mouth ity of 00:00: daily. [address] losartan 25 0 Yes 25mg Take 25 mg Univers mg tablet 5-25 by mouth ity of 00:00: daily. [place] [facility] losartan 25 Yes 25mg Take 25 mg Univers mg tablet 5-25 by mouth ity of 00:00: daily. [place] [facility] losartan 25 Yes 25mg Take 25 mg Univers mg tablet 5-25 by mouth ity of 00:00: daily. [place] [facility] losartan 25 Yes 25mg Take 25 mg Univers mg tablet 5-25 by mouth ity of 00:00: daily. [place] [facility] losartan 25 Yes 25mg Take 25 mg Univers mg tablet 5-25 by mouth ity of 00:00: daily. [place] [facility] losartan 25 Yes 25mg Take 25 mg Univers mg tablet 5-25 by mouth ity of 00:00: daily. [place] [facility] losartan 25 Yes 25mg Take 25 mg Univers mg tablet 5-25 by mouth ity of 00:00: daily. [place] [facility] losartan 25 Yes 25mg Take 25 mg Univers mg tablet 5-25 by mouth ity of 00:00: daily. [place] [facility] losartan 25 Yes 25mg Take 25 mg Univers mg tablet 5-25 by mouth ity of 00:00: daily. [place] [facility] losartan 25 Yes 25mg Take 25 mg Univers mg tablet 5-25 by mouth ity of 00:00: daily. [place] [facility] losartan Yes 25mg Take 25 mg Met hodi (COZAAR) 25 5-[address] [facility] lev[facility] Yes 112ug Take 112 U nivers ne 112 mcg 5-23 mcg by ity of tablet 00:00: mouth. [place] [facility] levothyroxi Yes 112ug Take 112 U nivers ne 112 mcg 5-23 mcg by ity of tablet 00:00: mouth. [place] [facility] levothyroxi 0 Yes 112ug Take 112 U nivers ne 112 mcg 5-23 mcg by ity of tablet 00:00: mouth. [place] [facility] levothyroxi Yes 112ug Take 112 U nivers ne 112 mcg 5-23 mcg by ity of tablet 00:00: mouth. [place] [facility] levothyroxi 2020-0 Yes 112ug Take 112 U nivers ne 112 mcg 5-23 mcg by ity of tablet 00:00: mouth. [place] [facility] levothyroxi 2020-0 Yes 112ug Take 112 U nivers ne 112 mcg 5-23 mcg by ity of tablet 00:00: mouth. [place] [facility] levothyroxi 2020-0 Yes 112ug Take 112 U nivers ne 112 mcg 5-23 mcg by ity of tablet 00:00: mouth. [place] [facility] levothyroxi 2020-0 Yes 112ug Take 112 U nivers ne 112 mcg 5-23 mcg by ity of tablet 00:00: mouth. [place] [facility] levothyroxi 2020-0 Yes 112ug Take 112 U nivers ne 112 mcg 5-23 mcg by ity of tablet 00:00: mouth. [place] [facility] levothyroxi 2020-0 Yes 112ug Take 112 U nivers ne 112 mcg 5-23 mcg by ity of tablet 00:00: mouth. [place] [facility] levothyroxi 2020-0 Yes 112ug Take 112 U nivers ne 112 mcg 5-23 mcg by ity of tablet 00:00: mouth. [place] [facility] levothyroxi 2020-0 Yes 112ug Take 112 U nivers ne 112 mcg 5-23 mcg by ity of tablet 00:00: mouth. [place] [facility] levothyroxi 2020-0 Yes 112ug Take 112 U nivers ne 112 mcg 5-23 mcg by ity of tablet 00:00: mouth. [place] [facility] levothyroxi 2020-0 Yes 112ug Take 112 U nivers ne 112 mcg 5-23 mcg by ity of tablet 00:00: mouth. [place] [facility] levothyroxi 2020-0 Yes 112ug Take 112 U nivers ne 112 mcg 5-23 mcg by ity of tablet 00:00: mouth. [place] [facility] voriconazol 2020-0 Yes 200mg Take 200 U nivers e 200 mg 5-19 mg by ity of tablet 00:00: mouth 2 [place] [address] (two) Medical times Branch daily. voriconazol 2020-0 Yes 200mg Take 200 U nivers e 200 mg 5-19 mg by ity of tablet 00:00: mouth 2 [place] [address] (two) Medical times Branch daily. voriconazol 2021-0 Yes 200mg Take 200 U nivers e 200 mg 5-19 mg by ity of tablet 00:00: [facility] [place] (two) Medical times Branch daily. voriconazol 2021-0 Yes 200mg Take 200 U nivers e 200 mg 5-19 mg by ity of tablet 00:00: mouth [address] [place] [address] (two) Medical times Branch daily. voriconazol 2021-0 Yes 200mg Take 200 U nivers e 200 mg 5-19 mg by ity of tablet 00:00: mouth [place] (two) Medical times Branch daily. voriconazol 2021-0 Yes 200mg Take 200 U nivers e 200 mg 5-19 mg by ity of tablet 00:00: [address] (two) Medical times Branch daily. voriconazol 2021-0 Yes 200mg Take 200 U nivers e 200 mg 5-19 mg by ity of tablet 00:00: mouth [address] [place] [address] (two) Medical times Branch daily. voriconazol 2021-0 Yes 200mg Take 200 U nivers e 200 mg 5-19 mg by ity of tablet 00:00: mouth [address] [place] [address] (two) Medical times Branch daily. voriconazol 2021-0 Yes 200mg Take 200 U nivers e 200 mg 5-19 mg by ity of tablet 00:00: [address] (two) Medical times Branch daily. voriconazol 2021-0 Yes 200mg Take 200 U nivers e 200 mg 5-19 mg by ity of tablet 00:00: [address] (two) Medical times Branch daily. voriconazol 2021-0 Yes 200mg Take 200 U nivers e 200 mg 5-19 mg by ity of tablet 00:00: mouth [address] [place] [address] (two) Medical times Branch daily. voriconazol 2021-0 Yes 200mg Take 200 M ethodi e (VFEND) 5-[address] 200 MG 00:00: mouth. Hospita tablet 00 l ondansetron 2021-0 Yes 4mg Take 4 mg U nivers 4 mg 5-03 by mouth. ity of disintegrat 00:00: [place] ing tablet 00 Medical Branch ondansetron 2021-0 Yes 4mg Take 4 mg U nivers 4 mg 5-03 by mouth. ity of disintegrat 00:00: [place] ing tablet 00 Medical Branch ondansetron 2021-0 Yes 4mg Take 4 mg U nivers 4 mg 5-03 by mouth. ity of disintegrat 00:00: [place] ing tablet 00 Medical Branch ondansetron 2021-0 Yes 4mg Take 4 mg U nivers 4 mg 5-03 by mouth. ity of disintegrat 00:00: [place] ing tablet 00 Medical Branch ondansetron 2021-0 Yes 4mg Take 4 mg U nivers 4 mg 5-03 by mouth. ity of disintegrat 00:00: [place] ing tablet 00 Medical Branch ondansetron 2021-0 Yes 4mg Take 4 mg U nivers 4 mg 5-03 by mouth. ity of disintegrat 00:00: [place] ing tablet 00 Medical Branch ondansetron 2021-0 Yes 4mg Take 4 mg U nivers 4 mg 5-03 by mouth. ity of disintegrat 00:00: [place] ing tablet 00 Medical Branch ondansetron 2021-0 Yes 4mg Take 4 mg U nivers 4 mg 5-03 by mouth. ity of disintegrat 00:00: [place] ing tablet 00 Medical Branch ondansetron 2021-0 Yes 4mg Take 4 mg U nivers 4 mg 5-03 by mouth. ity of disintegrat 00:00: [place] ing tablet 00 Medical Branch ondansetron 2021-0 Yes 4mg Take 4 mg U nivers 4 mg 5-03 by mouth. ity of disintegrat 00:00: [place] ing tablet 00 Medical Branch ondansetron 2021-0 Yes 4mg Take 4 mg U nivers 4 mg 5-03 by mouth. ity of disintegrat 00:00: [place] ing tablet 00 Medical Branch ondansetron 2021-0 Yes 4mg Take 4 mg U nivers 4 mg 5-03 by mouth. ity of disintegrat 00:00: [place] ing tablet 00 Medical Branch ondansetron 2021-0 Yes 4mg Take 4 mg U nivers 4 mg 5-03 by mouth. ity of disintegrat 00:00: [place] ing tablet 00 Medical Branch ondansetron 2021-0 Yes [id number] 4mg Q8H Take 1 Methodi ODT 5-03 tablet (4 st (ZOFRAN-ODT 00:00: mg total) H ospita ) 4 MG 00 by mouth l disintegrat every 8 ing tablet (eight) hours as needed for nausea or vomiting. tamoxifen 2020-1 2021- No 20mg Take 20 mg U nivers 20 mg 2-16 12-12 by mouth. ity of tablet 00:00: 05:59 [place] 00 :00 Medical [place] tamoxifen 2020-1 2021- No 20mg Take 20 mg U nivers 20 mg 2-16 12-12 by mouth. ity of tablet 00:00: 05:59 [place] 00 :00 Medical Branch tamoxifen 2020-1 2021- No 20mg Take 20 mg U nivers 20 mg 2-16 12-12 by mouth. ity of tablet 00:00: 05:59 [place] 00 :00 Medical Branch tamoxifen 2020-1 2021- No 20mg Take 20 mg U nivers 20 mg 2-16 12-12 by mouth. ity of tablet 00:00: 05:59 [place] 00 :00 Medical [place] tamoxifen 2020-1 2021- No 20mg Take 20 mg U nivers 20 mg 2-16 12-12 by mouth. ity of tablet 00:00: 05:59 [place] 00 :00 Medical [place] tamoxifen 2020-1 2021- No 20mg Take 20 mg U nivers 20 mg 2-16 12-12 by mouth. ity of tablet 00:00: 05:59 [place] 00 :00 Medical Branch tamoxifen 2020-1 2021- No 20mg Take 20 mg U nivers 20 mg 2-16 12-12 by mouth. ity of tablet 00:00: 05:59 [place] 00 :00 Medical [place] tamoxifen 2020-1 2021- No 20mg Take 20 mg U nivers 20 mg 2-16 12-12 by mouth. ity of tablet 00:00: 05:59 [place] 00 :00 Medical [place] tamoxifen 2020-1 2021- No 20mg Take 20 mg U nivers 20 mg 2-16 12-12 by mouth. ity of tablet 00:00: 05:59 [place] 00 :00 Medical Branch tamoxifen 2020-1 2021- No 20mg Take 20 mg U nivers 20 mg 2-16 12-12 by mouth. ity of tablet 00:00: 05:59 [place] 00 :00 Medical [place] tamoxifen 2020-1 2021- No 20mg Take 20 mg U nivers 20 mg 2-16 12-12 by mouth. ity of tablet 00:00: 05:59 [place] 00 :00 Medical Branch levothyroxi 2017-10 Yes 112ug QD Take 112 M ethodi ne 0-[address] (SYNTHROID, 00:00: mouth Hospi ta LEVOXYL) 00 daily. l 112 mcg tablet COMBIGAN Yes PUT 1 DROP Met hodi 0.2-0.5 % 06-[address] ophthalmic 00:00: EYES EVERY H ospita solution 00 DAY l FLUZONE Yes TO BE Methodi HIGH-DOSE 06-[address] , 00:00: ED BY Hospita PF, 180 00 PHARMACIST l mcg/0.5 mL FOR syringe IM IMMUNIZATI injection ON Vital Signs Vital Name Observation Time Observation Value Comments Source Systolic blood 2021-06-28 20:12:00 117 mm[Hg] [facility] Diastolic blood 2021-06-28 20:12:00 73 mm[Hg] Unive [facility] Heart rate 2021-06-28 20:12:00 80 /min [facility] Body temperature 2021-06-28 20:12:00 36.67 Carolyn [facility] Respiratory rate 2021-06-28 20:12:00 18 /min [facility] Body height 2021-06-28 20:12:00 162.6 cm [facility] Body weight 2021-06-28 20:12:00 61.054 kg [facility] BMI 2021-06-28 20:12:00 23.10 kg/m2 [facility] Systolic blood 2021-06-03 14:59:00 120 mm[Hg] [facility]iver [facility] Diastolic blood 2021-06-03 14:59:00 78 mm[Hg] [facility]ive [facility] Heart rate 2021-06-03 14:59:00 66 /min [facility] Body temperature 2021-06-03 14:59:00 36.67 Carolyn [facility] Respiratory rate 2021-06-03 14:59:00 20 /min [facility] Body height 2021-06-03 14:59:00 162.6 cm [facility] Body weight 2021-06-03 14:59:00 60.527 kg [facility] BMI 2021-06-03 14:59:00 22.90 kg/m2 [facility] Systolic blood 2021-05-29 14:52:00 121 mm[Hg] [facility]iver [facility] Diastolic blood 2021-05-29 14:52:00 68 mm[facility]Hg[facility] 2021-05-29 14:52:00 81 /min [facility] Body temperature 2021-05-29 14:52:00 36.72 Carolyn [facility] Respiratory rate 2021-05-29 14:52:00 18 /min [facility] Body height 2021-05-29 14:52:00 162.6 cm [facility] Body weight 2021-05-29 14:52:00 60.328 kg [facility] BMI 2021-05-29 14:52:00 22.83 kg/m2 [facility] Body height 2023-05-14 15:14:00 165.1 cm [facility] Body weight 2023-05-14 15:14:00 55.339 kg [facility] BMI 2023-05-14 15:14:00 20.30 kg/m2 [facility] Procedures Procedure Date / Time Performed Performing Clinician [facility] e NM BONE SCAN WHOLE 2023-05-14 18:21:00 Elva [facility] BODY CT CHEST W CONTRAST 2023-05-14 16:26[facility] 2023-05-14 15:23:00 Gabrielle [facility] ESTIMATED GFR 2023-05-14 15:23:00 Elva [facility] NM BONE SCAN WHOLE 2023-01-08 19:23:00 Elva [facility] BODY CT CHEST W CONTRAST 2023-01-08 17:07[facility] PELVIS W CONTRAST POC CREATININE 2023-01-08 15[facility]36:[facility] 2023-01-08 15:36[facility] WHOLE 2022-10-09 19:36:00 [facility] BODY CT CHEST W CONTRAST 2022-10-09 18:04[facility] PELVIS W CONTRAST POC CREATININE 2022-10-09 16:41:00 [facility] 2022-10-09 16:41:00 [facility] BONE [facility] WHOLE 2022-07-15 18[facility]50[facility] 2022-07-15 17:22:[facility] PELVIS W CONTRAST POC CREATININE 2022-07-15 15:58:00 [facility]FR 2022-07-15 15:58:00 [facility] DISCLOSURE AND 2021-06-28 05:01:00 Doctor Unassigned, No [facility] CONSENT, MEDICAL AND Name Medical [facility] SURGICAL PROCEDURES Plan of Care Planned Activity Planned Date Details Comments Source Future Scheduled 2023-06-20 65+ PNEUMOCOCCAL [facility] Test 21:20:21 VACCINE (1 - PCV) [code = 65+ PNEUMOCOCCAL VACCINE (1 - PCV)] Future Scheduled 2023-06-20 SHINGLES VACCINES (1 Met [facility] Test 21:20:21 of 2) [code = SHINGLES VACCINES (1 of 2)] Future Scheduled 2023-06-20 COVID-19 VACCINE (4 - Me [facility] Test 21:20:21 Moderna series) [code = COVID-19 VACCINE (4 - Moderna series)] Future Scheduled 2023-06-20 INFLUENZA VACCINE (#1) [facility] Test 21:20:21 [code = INFLUENZA VACCINE (#1)] Encounters Start End Encounter Admission Attending Care Care Encounter Source Date/Time Date/Time Type Type Clinicians Facility Department ID 2023-06-01 2023-06-01 [facility], 1.2.840.1 [id number] Methodi 09:20:00 09:32:53 ne Umberto Anuradha [id number] 3.430.2.7 Hospit a .3.542127 l .8 2023-06-01 2023-06-01 Outpatient [facility] [id number] [place] 00:00:00 00:00:00 UMBERTO [address] 2023-05-14 2023-05-14 [facility], 1.2.840.1 [id number] Methodi 12:30:00 23:59:00 Encounter Umberto Anuradha [id number] 3.430.2.7 Hospit a .3.252901 l .8 2023-05-14 2023-05-14 [facility], 1.2.840.1 [id number] Methodi 09:57:02 12:29:00 Encounter Umberto Anuradha 67849.1.[address] 3.430.2.7 Hospit a .3.383663 l .8 2023-05-14 2023-05-14 [facility], 1.2.840.1 [id number] Methodi 09:30:00 09:56:00 Encounter Umberto Anuradha 66943.1.[address] 3.430.2.7 Hospit a .3.967187 l .8 2023-05-14 2023-05-14 Outpatient [facility] [id number] [place] 00:00:00 00:00:00 UMBERTO [address] 2023-05-14 2023-05-14 Outpatient [facility] [id number] [place] 00:00:00 00:00:00 UMBERTO [address] 2023-05-14 2023-05-14 Outpatient [facility] [id number] [place] 00:00:00 00:00:00 UMBERTO [address] 2023-01-15 2023-01-15 [facility], 1.2.840.1 [id number] Methodi 00:00:00 00:00:00 Umberto Anuradha [address] 3.430.2.7 Hospit a .3.368183 l .8 2023-01-08 2023-01-08 [facility], 1.2.840.1 [id number] Methodi 12:30:00 23:59:00 Encounter Umberto Anuradha 12581.1.[address] 3.430.2.7 Hospit a .3.542051 l .8 2023-01-08 2023-01-08 [facility], 1.2.840.1 [id number] Methodi 10:13:22 12:29:00 Encounter Umberto Anuradha 13735.1.[address] 3.430.2.7 Hospit a .3.402938 l .8 2023-01-08 2023-01-08 [facility], 1.2.840.1 [id number] Methodi 09:30:00 10:12:00 Encounter Umberto Anuradha [id number] 3.430.2.7 Hospit a .3.876185 l .8 2023-01-08 2023-01-08 Travel 1.2.840.1 1.2.928.152 [id number] Methodi 00:00:00 00:00:[address] 3.430.2.7 0.2.7.3.698 Ho spita .3.616437 084.8 l .8 2023-01-08 2023-01-08 Outpatient [place] [id number] [place] [address] 00:00:00 00:00:00 UMBERTO 174 Method i 2023-01-08 2023-01-08 Outpatient [place] [id number] [place] [address] 00:00:00 00:00:00 UMBERTO [address] 2023-01-08 2023-01-08 Outpatient [place] [id number] [place] [address] 00:00:00 00:00:00 UMBERTO [address] 2023-01-02 2023-01-02 Orders [facility], 1.2.840.1 [id number] Methodi 00:00:00 00:00:00 Only Umberto Anuradha 42829.1.[address] 3.430.2.7 Hospit a .3.532320 l .8 2023-01-02 2023-01-02 Refill [facility], 1.2.840.1 [id number] [id number] Methodi 00:00:00 00:00:00 Umberto Anuradha [address] 3.430.2.7 Hospit a .3.712124 l .8 2022-12-29 2022-12-29 [facility], 1.2.840.1 [id number] Methodi 00:00:00 00:00:00 Umberto Anur[address]ha [address] 3.430.2.7 Hospit a .3.364845 l .8 2022-10-15 2022-10-15 Telephone [facility], 1.2.840.1 [id number] Methodi 00:00:00 00:00:00 Umberto Anuradha [address].1.[address] 3.430.2.7 Hospit a .3.176480 l .8 2022-10-09 2022-10-09 [facility], 1.2.840.1 [id number] Methodi 13:00:00 23:59:00 Encounter Umberto Anuradha 98110.1.[address] 3.430.2.7 Hospit a .3.711423 l .8 2022-10-09 2022-10-09 [facility], 1.2.840.1 [id number] Methodi 10:01:08 12:59:00 Encounter Umberto Anuradha 22160.1.[address] 3.430.2.7 Hospit a .3.685938 l .8 2022-10-09 2022-10-09 [facility], 1.2.840.1 [id number] Methodi 09:43:18 10:00:00 Encounter Umberto Anuradha 07808.1.[address] 3.430.2.7 Hospit a .3.520229 l .8 2022-10-09 2022-10-09 [place] [id number] [place] 00:00:00 00:00:00 UMBERTO [address] 2022-10-09 2022-10-[address] 00:00:00 00:00:00 UMBERTO [address] 2022-10-09 2022-10-09 Travel 1.2.840.1 1.2.677.998 [id number] Methodi 00:00:00 00:00:[address] 3.430.2.7 0.2.7.3.698 Ho spita .3.626088 084.8 l .8 2022-10-09 2022-10-09 [place] [id number] [place] 00:00:00 00:00:00 UMBERT[address] 2022-09-24 2022-09-24 Travel 1.2.840.1 1.2.625.719 [id number] Methodi 00:00:00 00:00:[address] 3.430.2.7 0.2.7.3.698 Ho spita .3.149032 084.8 l .8 2022-09-22 2022-09-22 [facility].2.840.1 [id number] Methodi 00:00:00 00:00:00 Only Umberto Anuradha 94656.1.[address] 3.430.2.7 Hospit a .3.894167 l .8 2022-07-15 2022-07-15 [facility] Gabrielle, 1.2.840.1 [id number] Methodi 13:30:00 23:59:00 Encounter Umberto Anuradha 43661.1.[address] 3.430.2.7 Hospit a .3.026356 l .8 2022-07-15 2022-07-15 [facility], 1.2.840.1 [id number] Methodi 10:23:53 13:29:00 Encounter Umberto Anuradha 76220.1.[address] 3.430.2.7 Hospit a .3.979505 l .8 2022-07-15 2022-07-15 [facility], 1.2.840.1 [id number] Methodi 10:00:00 10:22:00 Encounter Umberto Anuradha 98931.1.[address] 3.430.2.7 Hospit a .3.366582 l .8 2022-07-15 2022-07-15 Formerly [facility] [id number] [place] 00:00:00 00:00:00 UMBERTO 483 Method i 2022-07-15 2022-07-15 Outpatient [facility] [id number] [place] 00:00:00 00:00:00 UMBERTO 347 Method i 2022-07-15 2022-07-15 Outpatient [facility] [id number] [place] 00:00:00 00:00:00 UMBERTO 484 Method i 2022-07-15 2022-07-15 Travel 1.2.840.1 1.2.193.540 [id number] Methodi 00:00:00 00:00:[address] 3.430.2.7 0.2.7.3.698 [facility] .3.302250 084.8 l .8 2022-07-04 2022-07-04 [facility], 1.2.840.1 [id number] Methodi 00:00:00 00:00:00 Work January [address]01.1.[address] 3.430.2.7 Hospit a .3.958599 l .8 2022-07-03 2022-07-03 [facility] Gabrielle, 1.2.840.1 [id number] Methodi 00:00:00 00:00:00 Only Umberto Anuradha 05184.1.[address] 3.430.2.7 Hospit a .3.042542 l .8 2022-06-12 2022-06-12 Anuradha Nunez [facility] 1.2.840.11 [id number] [facility] [place] 00:00:00 00:00:00 WALE 350.1.13.10 it y of WOMEN'S 4.2.7.2.686 [facility]ALTH [id number] [address] 2022-03-31 2022-03-31 Outpatient NIRAVATH, [facility] [id number] [place] 00:00:00 00:00:00 UMBERTO 939 Method i 2022-03-31 2022-03-31 Outpatient [facility], [facility] [id number] [place] 00:00:00 00:00:00 UMBERTO 058 [facility] 2022-03-31 2022-03-31 Outpatient NIRAVATH, [facility] [id number] [place] 00:00:00 00:00:00 UMBEROT 940 [address] [facility] 2021-10-14 2021-10-14 Anuradha Nunez [facility] [id number] [facility] 00:00:00 00:00:00 WALE [id number] it y of WOMEN'S [id number] [facility] [id number] [address] 2021-10-10 2021-10-10 Outpatient ANURADHA JAIN [facility] [id number] [facility] 09:15:00 09:15:00 ity of [facility] 2021-08-07 2021-08-07 Outpatient NIRAVATH, [facility] [id number] [place] 00:00:00 00:00:00 UMBERTO 100 [facility] 2021-08-05 2021-08-05 Outpatient NIRAVATH, [facility] [id number] [place] 00:00:00 00:00:00 UMBERTO 609 [facility] 2021-08-05 2021-08-05 Outpatient NIRAVATH, [facility] [id number] [place] 00:00:00 00:00:00 UMBERTO 608 [address] i 2021-08-05 2021-08-05 Outpatient NIRAVATH, [facility] [id number] [place] 00:00:00 00:00:00 [address] 2021-07-05 2021-07-05 Telephone Anuradha Arenas [id number] Univers 00:00:00 00:00:00 [place] [id number] [place] [facility] [place] [facility] [phone] [address] 2021-07-04 2021-07-04 Telephone Anuradha Arenas [id number] Univers 00:00:00 00:00:00 [place] 350.1.13.10 [place] [place] [facility] [phone] [address] 2021-06-28 2021-06-28 Office [facility]ad[facility]ren[facility] [id number] Univers 14:32:39 15:46:25 Visit Francis 350.1.13.10 i [place] [phone] [place] [address] 2021-06-28 2021-06-28 Outpatient R ANURADHA ARENAS [facility] [id number] Univers 14:30:00 14:30:00 ity of [facility] 2021-06-28 2021-06-28 Orders Doctor SALOMON [id number] Univers 00:00:00 00:00:00 Only Unassigned, MARIA 350.1.13.10 ity of [place] [facility] 4.2.7.2.686 Ramon as [phone] [address] 2021-06-14 2021-06-14 Outpatient R ANURADHA ARENAS [facility] [id number] Univers 14:00:00 14:00:00 ity of [facility] 2021-06-03 2021-06-03 Office Anuradha Arenas 1.2.840.114 [id number] Univers 09:41:50 10:52:51 Visit [place] 350.1.13.10 [place] [place].686 [place] [phone] [place] [id number] [place] 2021-06-03 2021-06-03 Outpatient ANURADHA JAIN [facility] [id number] Univers 10:15:00 10:15:00 itmax [facility] 2021-05-29 2021-05-29 Outpatient R NATALIOKENROYJOSSE, [facility] [id number] Univers 10:30:00 10:30:00 ELIZABETH abel [facility] 2021-05-29 2021-05-29 Office [facility] [id number] [facility] 09:39:37 10:18:25 Visit Elizabeth Francis 350.1.13.10 i balwinder cruz [place] 4.2.7.2.686 [facility] [phone] Wa dical [address] 2021-05-09 2021-05-09 Outpatient DANNA GAVIN [facility] [id number] [place] 00:00:00 00:00:00 743 Method i 2021-04-15 2021-04-15 Outpatient SHE, [facility] [id number] [place] 00:00:00 00:00:00 APOLLO 019 Method i 2021-02-18 2021-02-20 Inpatient [facility] [id number] [place] 00:00:00 00:00:00 626 Method i 2021-02-08 2021-02-08 Outpatient NIRAVATH, [facility] [id number] [place] 00:00:00 00:00:00 UMBERTO 090 Method i 2021-02-08 2021-02-08 Outpatient NIRAVATH, [facility] [id number] [place] 00:00:00 00:00:00 UMBERTO 596 Method i 2021-02-08 2021-02-08 Outpatient NIRAVATH, [facility] [id number] [place] 00:00:00 00:00:00 UMBERTO 597 Method i 2021-02-08 2021-02-08 Outpatient NIRAVATH, [facility] [id number] [place] 00:00:00 00:00:00 UMBERTO 595 Method i 2020-10-02 2020-10-02 Outpatient NIRAVATH, [facility] [id number] [place] 00:00:00 00:00:00 UMBERTO 256 Method i 2020-10-02 2020-10-02 Outpatient NIRAVATH, [facility] [id number] [place] 00:00:00 00:00:00 UMBERTO 255 Method i 2020-10-02 2020-10-02 Outpatient NIRAVATH, [facility] [id number] [place] 00:00:00 00:00:00 UMBERTO 257 Method i 2020-08-31 2020-08-31 Outpatient NIRAVATH, [facility] [id number] [place] 00:00:00 00:00:00 UMBERTO 819 Method i 2020-08-31 2020-08-31 Outpatient NIRAVATH, [facility] [id number] [place] 00:00:00 00:00:00 UMBERTO 423 Method i 2020-07-27 2020-07-27 Outpatient NIRAVATH, [facility] [id number] [place] 00:00:00 00:00:00 UMBERTO 841 Method i 2020-07-27 2020-07-27 Outpatient NIRAVATH, [facility] [id number] [place] 00:00:00 00:00:00 UMBERTO 336 Method i 2020-07-06 2020-07-06 Outpatient NIRAVATH, [facility] [id number] [place] 00:00:00 00:00:00 UMBERTO 953 Method i 2020-07-06 2020-07-06 Outpatient NIRAVATH, [facility] [id number] [place] 00:00:00 00:00:00 UMBERTO 955 Method i 2020-07-06 2020-07-06 Outpatient NIRAVATH, [facility] [id number] [place] 00:00:00 00:00:00 UMBERTO 954 Method i 2020-06-01 2020-06-01 Outpatient NIRAVATH, [facility] [id number] [place] 00:00:00 00:00:00 UMBERTO 786 Method i 2020-06-01 2020-06-01 Outpatient NIRAVATH, [facility] [id number] [place] 00:00:00 00:00:00 UMBERTO 764 Method i 2020-02-24 2020-02-24 Outpatient NIRAVATH, [facility] [id number] [place] 00:00:00 00:00:00 UMBERTO [address] 2019-11-29 2019-11-29 Outpatient NIRAVA, [facility] [id number] [place] 00:00:00 00:00:00 UMBERTO [address] 2019-11-29 2019-11-29 [facility] [id number] [place] 00:00:00 00:00:00 UMBERTO [address] 2019-10-28 2019-10-28 Outpatient NIRAVA, [facility] [id number] [place] 00:00:00 00:00:00 UMBERTO [address] 2019-10-28 2019-10-28 [facility] [place] [id number] [place] 00:00:00 00:00:00 UMBERTO [address] 2019-10-28 2019-10-28 Outpatient [facility], [facility] [id number] [place] 00:00:00 00:00:00 UMBERTO [address] Results Test Description Test Time Test Comments Results Result Comments Source POC creatinine 2023-05-14 15:25:00 Test Item Value Reference Range Interpretation Comme nts POC creatinine (test code = 0.7 mg/dl 0.5-0.9 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 Interpretation is based on recommendations of the National Kidney Foundation-Kidn ey Disease Outcomes Qualit y Initiative (NKF-KDOQI) pub lished in 2014. Protestant BsfdjcokBQTM-ShE-1 (COVID-19) RNA [Presence] in Respiratory specimen by MERY with probe [id number] 22:57:08 Test Item Value Reference Range Interpretation Comments SARS-CoV-2 (COVID-19) RNA Not detected Not-Detected [Presence] in Respiratory specimen by MERY with probe detection (test code = 80551-0) Whether patient is employed in a healthcare setting (test code = 44009-2) Whether the patient has symptoms related to condition of interest (test code = 25978-1) Patient was hospitalized because of this condition (test code = 55869-6) Whether the patient was admitted to intensive care unit (ICU) for condition of interest (test code = 26593-6) Whether patient resides in a congregate care setting (test code = 31836-4) SANGEETHA HUMPHREY
[2023-06-21 21:31] LABS: Absolute Lymphocytes (CBC) 0.5 K/uL (0.7-4.9); Hematocrit 27.3 % (36.0-45.0); Lymphocytes % 8.8 % (15.3-44.8); MCV 97.2 fL (80-100); MPV 7.2 fL (7.6-11.3); Platelets 196 thou/uL (152-406)
--- NOTE | 2023-06-21 21:32 | RAD REPORT ---
EXAM DESCRIPTION: RAD - Chest Single View - 06/21/2023 9:11 pm CLINICAL HISTORY: COUGH COMPARISON: Chest Pa And Lat (2 Views) dated 08/25/2022; CHEST SINGLE VIEW dated 06/20/2015; CHEST PA A ND LAT 2 VIEW dated 11/21/2014; CHEST PA AND LAT 2 VIEW dated 03/06/2009; Stone Protocol dated 06/21/2023 FINDINGS: Lines: None. Lungs: Prominent lung markings along the medial right lung base. This is likely combination of bronch ial wall thickening and nodularity. Pleural: No significant pleural effusions or pneumothorax. Cardiac: The heart size is within normal limits. Mediastinum: Within normal limits. Bones: No acute fractures. Right shoulder arthroplasty. Other: None IMPRESSION: Bronchial wall thickening and nodularity in the medial right lung base as noted on the C T could reflect chronic aspiration. No evidence of a consolidative pneumonia.
[2023-06-21 21:37] LABS: Protime INR 1.28
[2023-06-21 21:45] LABS: Albumin 2.7 g/dL (3.4-5.0); Bilirubin Direct 0.1 mg/dL (0-0.2); Bilirubin Indirect, Calculated 0.2 mg/dL (0.2-0.8); Bilirubin Total 0.3 mg/dL (0.2-1.0); Magnesium 2.3 mg/dL (1.6-2.4); Protein, Total 6.2 g/dL (6.4-8.2); Troponin High Sensitivity 16.7 pg/mL (<58.9)
[2023-06-21] MEDS ORDERED: CEFTRIAXONE 1000 MG/VIAL ONE (22:04)
[2023-06-21] MEDS ORDERED: NA CHLORIDE 0.9% 1,000 ML ONE (22:05)
[2023-06-21] MEDS ORDERED: Levofloxacin500mg IV 500 MG/100 ML BAG IV ONE (22:05)
[2023-06-21 22:14] LABS: Specific Gravity 1.022 (1.005-1.030); Urine Bacteria >50 /HPF (<20); Urine Bilirubin NEGATIVE (Negative); Urine Blood Trace (Negative); Urine Clarity Extremely Turbid (Clear); Urine Color Yellow (Yellow); Urine Glucose NEGATIVE (Negative); Urine Mucus Slight /HPF (None Seen); Urine Protein TRACE (Negative); Urine RBC >50 /HPF (None Seen); Urine Urobilinogen Normal (Normal)
--- NOTE | 2023-06-21 22:39 | ER ---
Nurse's Notes [facility] Name: Cecelia Ramires Age: 87 yrs Sex: Female : 1935 Arrival Date: 06/21/2023 Time: 19:31 Bed 16 Private MD: Diagnosis: Altered mental status, unspecified;UTI/ Urinary tract infection, site not specified;Pneumonia due to other specified bacteria;Fever, unspecified Presentation: 06/21 19:45 Chief complaint: EMS states: toned out to home because patient was unconscious. Upon me1 arrival patient was Alert and oriented x4 but forgetful. Caregiver reported that patient was sleeping and caregiver was unable to wake her up. Coronavirus screen: Vaccine status: Patient reports receiving the 2nd dose of the covid vaccine. At this time, the client does not indicate any symptoms associated with coronavirus-19. Ebola Screen: No symptoms or risks identified at this time. Initial Sepsis Screen: Does the patient meet any 2 criteria? No. Patient's initial sepsis screen is negative. Does the patient have a suspected source of infection? No. Patient's initial sepsis screen is negative. Risk Assessment: Do you want to hurt yourself or someone else?. Onset of symptoms was June 21, 2023. 19:45 Method Of Arrival: EMS: [place] [address] 19:45 Acuity: WILMER 3 me1 Triage Assessment: 19:47 General: Appears comfortable, slender, well groomed, well developed, Behavior is calm, me1 cooperative, appropriate for age, Reports per EMS caregiver was unable to wake patient when she called but patient was awake and alert on arrival. Patient does have lung cancer and is 02 dependant at 2 Lpm via nc at home. EMS states urine had a foul odor in the home. Pain: Denies pain. Neuro: Level of Consciousness is awake, alert, obeys commands, Oriented to person, place, time, situation, Appropriate for age. Neuro: Oriented to. Cardiovascular: Capillary refill < 3 seconds Patient's skin is warm and dry. Respiratory: Airway is patent Respiratory effort is even, unlabored, Respiratory pattern is regular, symmetrical. Historical: - Allergies: 19:47 No Known Allergies; me1 - PMHx: 19:47 breast cancer; Glaucoma; Hypothyroidism; lung cancer; me1 - PSHx: 19:47 Appendectomy; Tonsillectomy; left knee replacement; right shoulder surgery; me1 - Immunization history:: Adult Immunizations up to date. - Social history:: Smoking status: Patient/guardian denies using tobacco, but has a distant history of tobacco abuse. Screenin:51 [facility] ED Fall Risk Assessment (Adult) History of falling in the last 3 months, me1 including since admission No falls in past 3 months (0 pts) Confusion or Disorientation No (0 pts) Intoxicated or Sedated No (0 pts) Impaired Gait Yes (1 pt) Mobility Assist Device Used Yes (1 pt) Altered Elimination Yes (1 pt) Score/Fall Risk Level 3 or more points = High Risk Oriented to surroundings, Maintained a safe environment, Educated pt \T\ family on fall prevention, incl call for assistance when getting out of bed, Assessed \T\ reinforced patient's understanding of fall precautions, Provided non-skid footwear, Hourly rounding (assess needs \T\ fall precautionary measures) done, Implemented a Fall Risk Plan of Care, Utilized family, sitter, or virtual door captain as indicated. Abuse screen: Denies threats or abuse. Nutritional screening: No deficits noted. Tuberculosis screening: No symptoms or risk factors identified. Assessment: 19:51 General: see triage assessment.. me1 Vital Signs: 19:45 BP 159 / 66; Pulse 88; Resp 18; Temp 99.1(O); Pulse Ox 98% on 2 lpm NC; Weight 56.25 me1 kg; Height 5 ft. 3 in. ; 19:47 BP 159 / 66; Pulse 88; Resp 18; Pulse Ox 98% on 3 lpm NC; me1 20:45 BP 132 / 57; Pulse 92; Resp 19; Pulse Ox 98% on 3 lpm NC; me1 21:45 BP 125 / 54; Pulse 92; Resp 20; Pulse Ox 97% on 3 lpm NC; me1 21:45 BP 161 / 80; Pulse 76; Resp 19; Pulse Ox 99% on 3 lpm NC; me1 23:08 BP 104 / 74; Pulse 73; Resp 17; Pulse Ox 99% on 3 lpm NC; me1 19:45 Body Mass Index 21.97 (56.25 kg, 160.02 cm) ny1 ED Course: 19:44 Patient arrived in ED. me1 19:45 Lesli Garvin, RN is Primary Nurse. me1 19:47 Triage completed. me1 19:47 Arm band placed on Patient placed in an exam room. me1 19:51 Norm Smith MD is Attending Physician. [facility] 19:51 Patient has correct armband on for positive identification. Bed in low position. Call me1 light in reach. Side rails up X2. Provided Education on: POC. Verbalized understanding.. 19:51 No provider procedures requiring assistance completed. Maintain EMS IV. Dressing me1 intact. Good blood return noted. Site clean \T\ dry. Gauge \T\ site: 18g RFA. 20:33 CT Head Brain wo Cont In Process Unspecified. EDMS 20:35 CT Stone Protocol In Process Unspecified. EDMS 21:13 XRAY Chest (1 view) In Process Unspecified. EDMS 21:41 Urinalysis w/ reflexes Sent. me1 21:41 Basic Metabolic Panel Sent. me1 21:41 LFT's Sent. me1 21:41 Magnesium Sent. me1 21:41 NT PRO-BNP Sent. me1 21:41 Troponin HS Sent. me1 23:09 IV discontinued, intact, bleeding controlled, No redness/swelling at site. Pressure me1 dressing applied. Administered Medications: 21:53 Drug: NS 0.9% IV 1000 ml Route: IV; Rate: 1 bolus; Site: right forearm; me1 22:29 Follow up: IV Status: Completed infusion; IV Intake: 1000ml me1 21:54 Drug: Rocephin IV 1 grams Route: IV; Rate: per protocol; Site: right forearm; me1 22:42 Follow up: Response: No adverse reaction me1 21:54 Drug: levofloxacin IVPB 500 mg Volume: 100 ml; Route: IVPB; Infused Over: 60 mins; me1 Site: right forearm; 22:54 Follow up: Response: No adverse reaction; IV Status: Completed infusion me1 22:41 Drug: Amoxicillin-Clavulanate PO 875 mg Route: PO; me1 23:08 Follow up: Response: No adverse reaction me1 Medication: 19:51 VIS not applicable for this client. me1 Intake: 22:29 IV: 1000ml; Total: 1000ml. me1 Outcome: 22:38 Discharge ordered by . [facility] 23:32 Discharged to home via wheelchair, with family. me1 23:32 Condition: stable 23:32 Discharge instructions given to patient, family, Instructed on discharge instructions, follow up and referral plans. medication usage, Demonstrated understanding of instructions, follow-up care, medications, Prescriptions given X 2. 23:33 Patient left the ED. me1 Signatures: Dispatcher [employer] Norm Almaguer MD MD cha Eddleman, Michelle, RN RN me1
--- NOTE | 2023-06-21 22:39 | EDPHYS ---
Physician Documentation [facility] Name: Cecelia Ramires Age: 87 yrs Sex: Female : 1935 Arrival Date: 06/21/2023 Time: 19:31 Bed 16 Private MD: ED Norm Gipson HPI: 06/21 22:15 This 87 yrs old Female presents to ER via EMS with complaints of Altered lan Mental Status. Historical: - Allergies: 19:47 No Known Allergies; me1 - PMHx: 19:47 breast cancer; Glaucoma; Hypothyroidism; lung cancer; me1 - PSHx: 19:47 Appendectomy; Tonsillectomy; left knee replacement; right shoulder surgery; me1 - Immunization history:: Adult Immunizations up to date. - Social history:: Smoking status: Patient/guardian denies using tobacco, but has a distant history of tobacco abuse. ROS: 22:33 Constitutional: Negative for fever, chills, and weight loss, Eyes: Negative for injury, lan pain, redness, and discharge, ENT: Negative for injury, pain, and discharge, Neck: Negative for injury, pain, and swelling, Cardiovascular: Negative for chest pain, palpitations, and edema, Respiratory: Negative for shortness of breath, cough, wheezing, and pleuritic chest pain, Abdomen/GI: Negative for abdominal pain, nausea, vomiting, diarrhea, and constipation, Back: Negative for injury and pain, : Negative for injury, bleeding, discharge, and swelling, MS/Extremity: Negative for injury and deformity, Skin: Negative for injury, rash, and discoloration, Psych: Negative for depression, anxiety, suicide ideation, homicidal ideation, and hallucinations, Allergy/Immunology: Negative for hives, rash, and allergies, Endocrine: Negative for neck swelling, polydipsia, polyuria, polyphagia, and marked weight changes, Hematologic/Lymphatic: Negative for swollen nodes, abnormal bleeding, and unusual bruising. 22:33 Neuro: Positive for altered mental status. Exam: 22:33 Constitutional: This is a well developed, well nourished patient who is awake, alert, lan and in no acute distress. Head/Face: Normocephalic, atraumatic. Eyes: Pupils equal round and reactive to light, extra-ocular motions intact. Lids and lashes normal. Conjunctiva and sclera are non-icteric and not injected. Cornea within normal limits. Periorbital areas with no swelling, redness, or edema. ENT: Nares patent. No nasal discharge, no septal abnormalities noted. Tympanic membranes are normal and external auditory canals are clear. Oropharynx with no redness, swelling, or masses, exudates, or evidence of obstruction, uvula midline. Mucous membranes moist. Neck: Trachea midline, no thyromegaly or masses palpated, and no cervical lymphadenopathy. Supple, full range of motion without nuchal rigidity, or vertebral point tenderness. No Meningismus. Chest/axilla: Normal chest wall appearance and motion. Nontender with no deformity. No lesions are appreciated. Cardiovascular: Regular rate and rhythm with a normal S1 and S2. No gallops, murmurs, or rubs. Normal PMI, no JVD. No pulse deficits. Respiratory: Lungs have equal breath sounds bilaterally, clear to auscultation and percussion. No rales, rhonchi or wheezes noted. No increased work of breathing, no retractions or nasal flaring. Abdomen/GI: Soft, non-tender, with normal bowel sounds. No distension or tympany. No guarding or rebound. No evidence of tenderness throughout. Back: No spinal tenderness. No costovertebral tenderness. Full range of motion. Female : Normal external genitalia. Skin: Warm, dry with normal turgor. Normal color with no rashes, no lesions, and no evidence of cellulitis. MS/ Extremity: Pulses equal, no cyanosis. Neurovascular intact. Full, normal range of motion. Neuro: Awake and alert, GCS 15, oriented to person, place, time, and situation. Cranial nerves II-XII grossly intact. Motor strength 5/5 in all extremities. Sensory grossly intact. Cerebellar exam normal. Normal gait. Psych: Awake, alert, with orientation to person, place and time. Behavior, mood, and affect are within normal limits. 22:35 Neck: lan Vital Signs: 19:45 BP 159 / 66; Pulse 88; Resp 18; Temp 99.1(O); Pulse Ox 98% on 2 lpm NC; Weight 56.25 me1 kg; Height 5 ft. 3 in. ; 19:47 BP 159 / 66; Pulse 88; Resp 18; Pulse Ox 98% on 3 lpm NC; me1 20:45 BP 132 / 57; Pulse 92; Resp 19; Pulse Ox 98% on 3 lpm NC; me1 21:45 BP 125 / 54; Pulse 92; Resp 20; Pulse Ox 97% on 3 lpm NC; me1 21:45 BP 161 / 80; Pulse 76; Resp 19; Pulse Ox 99% on 3 lpm NC; ga1 23:08 BP 104 / 74; Pulse 73; Resp 17; Pulse Ox 99% on 3 lpm NC; ga1 19:45 Body Mass Index 21.97 (56.25 kg, 160.02 cm) [facility] MDM: 19:51 Patient medically screened. lan 22:35 Differential Diagnosis: CVA, electrolyte abnormality, hypoglycemia, intracranial bleed, lan overdose, pneumonia, seizure, sepsis, TIA, UTI, volume depletion. Data reviewed: vital signs, nurses notes, EMS record, lab test result(s), EKG, radiologic studies, CT scan, plain films. Consideration of Admission/Observation Escalation of care including admission/observation considered. I considered the following discharge prescriptions or medication management in the emergency department Medications were administered in the Emergency Department. See MAR. Independent interpretation of the following test(s) in the Emergency Department EKG: See my EKG interpretation above. Test considered but Not performed: Ultrasound no abd usg. Care significantly affected by the following chronic conditions: lung ca, breast ca,hypothyroid. 06/21 20:04 Order name: Basic Metabolic Panel; Complete Time: 22:12 [facility] 06/21 20:04 Order name: CBC with Diff; Complete Time: 22:12 [facility] 06/21 20:04 Order name: LFT's; Complete Time: 22:12 [facility] 06/21 20:04 Order name: Magnesium; Complete Time: 22:12 [facility] 06/21 20:04 Order name: NT PRO-BNP; Complete Time: 22:12 [facility] 06/21 20:04 Order name: PT-INR; Complete Time: 22:12 [facility] 06/21 20:04 Order name: Troponin HS; Complete Time: 22:12 [facility] 06/21 20:04 Order name: Urinalysis w/ reflexes; Complete Time: 22:33 lan 06/21 20:04 Order name: Blood Culture Adult (2) [facility] 06/21 20:04 Order name: Lactate w/ 2H reflex if indic.; Complete Time: 22:12 [facility] 06/21 22:26 Order name: Urine Culture [facility] 06/21 20:04 Order name: XRAY Chest (1 view); Complete Time: 22:12 [facility] 06/21 20:04 Order name: CT Head Brain wo Cont; Complete Time: 21:20 [facility] 06/21 20:04 Order name: CT Stone Protocol; Complete Time: 21:20 [facility] 06/21 20:04 Order name: EKG; Complete Time: 20:06 [facility] 06/21 20:04 Order name: Cardiac monitoring [facility] 06/21 20:04 Order name: EKG - Nurse/Tech; Complete Time: 23:25 [facility] 06/21 20:04 Order name: IV Saline Lock; Complete Time: 21:41 [facility] 06/21 20:04 Order name: Labs collected and sent; Complete Time: 21:41 [facility] 06/21 20:04 Order name: O2 Per Protocol; Complete Time: 21:41 [facility] 06/21 20:04 Order name: O2 Sat Monitoring; Complete Time: 21:41 [facility] 06/21 21:21 Order name: PO challenge; Complete Time: 21:41 [facility] Administered Medications: 21:53 Drug: NS 0.9% IV 1000 ml Route: IV; Rate: 1 bolus; Site: right forearm; me1 22:29 Follow up: IV Status: Completed infusion; IV Intake: 1000ml me1 21:54 Drug: Rocephin IV 1 grams Route: IV; Rate: per protocol; Site: right forearm; me1 22:42 Follow up: Response: No adverse reaction me1 21:54 Drug: levofloxacin IVPB 500 mg Volume: 100 ml; Route: IVPB; Infused Over: 60 mins; me1 Site: right forearm; 22:54 Follow up: Response: No adverse reaction; IV Status: Completed infusion me1 22:41 Drug: Amoxicillin-Clavulanate PO 875 mg Route: PO; me1 23:08 Follow up: Response: No adverse reaction me1 Disposition Summary: 06/21/23 22:38 Discharge Ordered Location: Home lan Problem: new lan Symptoms: have improved lan Condition: Stable lan Diagnosis - Altered mental status, unspecified lan - UTI/ Urinary tract infection, site not specified lan - Pneumonia due to other specified bacteria lan - Fever, unspecified lan Followup: lan - With: Private Physician - When: 2 - 3 days - Reason: Recheck today's complaints, Continuance of care, Re-evaluation by your physician Discharge Instructions: - Discharge Summary Sheet lan - Confusion lan - Dysuria lan - Fever, Adult lan - Community-Acquired Pneumonia, Adult lan - Urinary Tract Infection, Adult lan - Urinary Tract Infection, Adult, Vxzo-ab-Mpkm lan - Community-Acquired Pneumonia, Adult, Cztt-we-Dqsv lan - Fever, Adult, Bsbt-ih-Laor [facility] Forms: - Medication Reconciliation Form [facility] - Thank You Letter [facility] - Antibiotic Education [facility] - Prescription Opioid Use [facility] - Patient Portal Instructions [facility] - Leadership Thank You Letter [facility] Prescriptions: - Augmentin 875-125 mg Oral Tablet - take 1 tablet by ORAL route every 12 hours for 10 days; 20 tablet; Refills: 0, [facility] Product Selection Permitted - levofloxacin 250 mg Oral Tablet - take 1 tablet by ORAL route once daily; 10 tablet; Refills: 0, Product [facility] Selection Permitted Signatures: Dispatcher [employer] Norm Almaguer MD MD cha Eddleman, Michelle RN RN me1
[2023-06-21] MEDS ORDERED: AMOX/K CLAV 875 MG TAB ONE (22:43)
[2023-06-21 23:48] VITALS: TEMP 99.1
[2023-06-21 23:53] VITALS: O2SAT 99
[2023-06-21 23:54] VITALS: BP 104/74
--- NOTE | 2023-06-23 16:50 | EKG ---
Test Date: 2023-06-21 Test Time: 23:04:42 Balloon Seller: CIARRA MEASUREMENT RESULTS: Intervals: Rate: 76 CA: 162 QRSD: 82 QT: 408 QTc: 459 [place]: P: 84 CA: 162 QRS: 39 T: 62 INTERPRETIVE STATEMENTS: Normal sinus rhythm with sinus arrhythmia T wave abnormality, consider anterior ischemia Abnormal ECG Compared to ECG 06/20/2015 08:10:22 Possible ischemia now present T-wave abnormality still present Electronically Signed On 06-23-23 16:45:01 CDT by Kemar Argueta
== END 2023-06-21 23:33 | disposition home or self-care (01) ==
LOC: ER 19:31
DX: R41.82 Altered mental status, unspecified (principal); N39.0 Urinary tract infection, site not specified; J15.8 Pneumonia due to other specified bacteria; R50.9 Fever, unspecified; Z85.3 Personal history of malignant neoplasm of breast; Z85.118 Personal history of other malignant neoplasm of bronchus and lung
CPT/HCPCS: 96365; 93005; 87040 ×2; 87088; 85025; 81001; 87086; 80048; 36415; 83735; 85610; 80076; 83605; 87077 ×2; 87186 ×2; 84484; 83880; 70450; 76377; 74176; 71045; 96375; 99284; J7030; J0696

== ENCOUNTER 2023-10-02 21:14 | Emergency (ER) | payer OTHER ==
[2023-10-02 22:08] LABS: Absolute Lymphocytes (CBC) 1.4 K/uL (0.7-4.9); Hematocrit 34.1 % (36.0-45.0); Lymphocytes % 14.5 % (15.3-44.8); MCV 93.2 fL (80-100); MPV 7.5 fL (7.6-11.3); Platelets 240 thou/uL (152-406); RBC Red Blood Cell Count 3.65 M/uL (3.86-4.86)
[2023-10-02] MEDS ORDERED: CEFTRIAXONE 1000 MG/VIAL ONE (22:11)
[2023-10-02] MEDS ORDERED: NA CHLORIDE 0.9% 50 ML ONE (22:11)
[2023-10-02 22:13] LABS: Protime INR 1.07
[2023-10-02 22:28] LABS: Albumin 2.6 g/dL (3.4-5.0); Bilirubin Total 0.6 mg/dL (0.2-1.0); Protein, Total 7.3 g/dL (6.4-8.2)
[2023-10-03 01:14] LABS: Urine Bilirubin NEGATIVE (Negative); Urine Blood Negative (Negative); Urine Clarity Clear (Clear); Urine Color Light-Yellow (Yellow); Urine Glucose NEGATIVE (Negative); Urine Protein NEGATIVE (Negative); Urine Urobilinogen Normal (Normal)
[2023-10-03 01:27] LABS: Specific Gravity > 1.030 (1.005-1.030)
--- NOTE | 2023-10-03 02:40 | EDPHYS ---
Physician Documentation [facility] Name: Cecelia Ramires Age: 88 yrs Sex: Female : 1935 Arrival Date: 10/02/2023 Time: 21:14 Bed 6 Private MD: ED Physician Aleksandr Avendaño HPI: 10/02 22:13 This 88 yrs old Female presents to ER via EMS with complaints of AMS. rn 22:13 The patient presents with confusion, decreased responsiveness. Onset: The rn symptoms/episode began/occurred today. Possible causes: unknown. Associated signs and symptoms: Pertinent positives: confusion, Pertinent negatives: chest pain, seizure. Current symptoms: In the emergency department the patient's symptoms have improved. The patient has not experienced similar symptoms in the past. The patient has been recently seen by a physician:. EMS and son report altered mental status that began today. Was started on antibiotics yesterday, ciprofloxacin, for UTI. Urine was not obtained, treated empirically by hospice care. No fever. Patient was difficult to arouse and seems altered to son. Patient with known breast cancer, metastatic, not known to be metastatic to brain. Son also reports approximately a week of abdominal pain and distention. Patient is on hospice care.. Historical: - Allergies: 21:21 No Known Allergies; as6 - PMHx: 21:21 breast cancer; Glaucoma; Hypothyroidism; Lung Cancer; as6 - PSHx: 21:21 Appendectomy; Left knee replacement; right shoulder surgery; Tonsillectomy; as6 - Immunization history:: Adult Immunizations up to date. - Social history:: Smoking status: Patient denies any tobacco usage or history of. - Family history:: not pertinent. - Hospitalizations: : No recent hospitalization is reported. ROS: 22:13 Constitutional: Negative for fever, chills, and weight loss, Eyes: Negative for injury, rn pain, redness, and discharge, Cardiovascular: Negative for chest pain, palpitations, and edema, Respiratory: Positive for rapid breathing Abdomen/GI: Positive for abdominal pain and distention Back: Negative for injury and pain, MS/Extremity: Negative for injury and deformity, Skin: Negative for injury, rash, and discoloration, Neuro: Negative for headache, numbness, tingling, and seizure, Exam: 22:13 Constitutional: This is a well developed, well nourished patient who is awake, alert, rn and in no acute distress. Head/Face: Normocephalic, atraumatic. ENT: Dry mucous membranes, no stridor Cardiovascular: Regular rate and rhythm. No pulse deficits. Respiratory: Mild tachypnea, coarse bilateral breath sounds, no retractions Abdomen/GI: Soft, mild tenderness right lower quadrant, no focal masses, does appear distended Skin: Warm, dry MS/ Extremity: Pulses equal, no cyanosis. Neuro: Awake and alert, GCS 15, oriented to person, place, time, and situation. Cranial nerves II-XII grossly intact. Motor strength 4/5 in all extremities. Sensory grossly intact. 23:03 ECG was reviewed by the Attending Physician. rn Vital Signs: 21:21 BP 156 / 93; Pulse 91; Resp 24 S; Temp 98.2(O); Pulse Ox 100% on 2 lpm NC; Weight 65.32 as6 kg (M); Height 5 ft. 5 in. (R); Pain 0/10; 22:00 BP 145 / 89; Pulse 88; Pulse Ox 100% on 2 lpm NC; km8 22:30 BP 136 / 75; Pulse 86; Pulse Ox 100% on 2 lpm NC; km8 23:17 BP 148 / 77; Pulse 85; Pulse Ox 100% on R/A; km8 23:30 BP 138 / 78; Pulse 84; Pulse Ox 100% on 2 lpm NC; km8 10/03 00:00 BP 130 / 75; Pulse 85; Pulse Ox 100% on 2 lpm NC; km8 00:30 BP 132 / 79; Pulse 85; Pulse Ox 100% on 2 lpm NC; km8 01:00 BP 148 / 82; Pulse 86; Pulse Ox 98% on 2 lpm NC; km8 01:30 BP 150 / 79; Pulse 84; Pulse Ox 100% on 2 lpm NC; km8 02:00 BP 142 / 76; Pulse 85; Pulse Ox 99% on 2 lpm NC; km8 03:33 BP 147 / 77; Pulse 81; Resp 18; Temp 98; Pulse Ox 99% on 2 lpm NC; rv 10/02 21:21 Body Mass Index 23.96 (65.32 kg, 165.1 cm) as6 10/02 21:21 Pain Scale: Adult as6 MDM: 10/02 21:21 Patient medically screened. rn 10/03 00:19 ED course: Son phone number: Manuel [phone]. rn 02:36 Differential Diagnosis: CVA, electrolyte abnormality, hypoglycemia, intracranial bleed, rn pneumonia, UTI, volume depletion, Dehydration, progressive cancer, UTI, metastases. Data reviewed: vital signs, nurses notes, lab test result(s), EKG, radiologic studies, CT scan, plain films, and as a result, I will discharge patient. Counseling: I had a detailed discussion with the patient and/or guardian regarding the historical points, exam findings, and any diagnostic results supporting the discharge/admit diagnosis, lab results, radiology results, the need for outpatient follow up, to return to the emergency department if symptoms worsen or persist or if there are any questions or concerns that arise at home. Response to treatment: the patient's symptoms have mildly improved after treatment, and as a result, I will discharge patient. Special discussion: I discussed with the patient/guardian in detail that at this point there is no indication for admission to the hospital. It is understood, however, that if the symptoms persist or worsen the patient needs to return immediately for re-evaluation. ED course: Patient improved with IV fluids. Imaging shows progression of cancer with enlargement of liver and metastases but no acute findings. CT head does not show metastases or acute findings. Urine is clear and negative. Chest x-ray negative for infection. Had long discussion with results and went through all imaging with family member, he requests transport back home for hospice care. I have personally reviewed all of the results, including but not limited to blood tests and imaging deemed necessary to safely discharge this patient at this time. All results given to and printed out for patient. I personally went over all the results with the patient and answered all questions. Patient will follow-up with PCP and or specialist as discussed. Return precautions given and understood.. 10/02 21:22 Order name: Urinalysis w/ reflexes; Complete Time: 02:19 rn 10/02 21:45 Order name: Lactate w/ 2H reflex if indic.; Complete Time: 22:57 EDMS 10/02 21:57 Order name: Comprehensive Metabolic Panel; Complete Time: 22:57 EDMS 10/02 21:57 Order name: CBC with Automated Diff; Complete Time: 22:27 EDMS 12/15 21:58 Order name: Protime (+INR); Complete Time: 22:27 EDSD 10/02 21:58 Order name: PTT, Activated Partial Thromb; Complete Time: 22:27 EDSD 10/02 21:58 Order name: Blood Culture EDSD 10/02 22:00 Order name: Blood Culture EDSD 10/02 22:25 Order name: Head Brain Wo Cont EDSD 10/02 22:25 Order name: Abdomen EDSD 10/02 22:57 Order name: Chest Single View EDSD 10/02 23:40 Order name: RC 02 HUMIDIFIER EDSD 10/02 21:22 Order name: EKG; Complete Time: 23:02 rn 10/02 21:22 Order name: Accucheck; Complete Time: 21:33 rn 10/02 21:22 Order name: Cardiac monitoring; Complete Time: 21:24 rn 10/02 21:22 Order name: EKG - Nurse/Tech; Complete Time: 21:33 rn 10/02 21:22 Order name: IV Saline Lock - Large Bore; Complete Time: 21:24 rn 10/02 21:22 Order name: Labs collected and sent; Complete Time: 21:33 rn 10/02 21:22 Order name: O2 Per Protocol; Complete Time: 21:24 rn 10/02 21:22 Order name: O2 Sat Monitoring; Complete Time: 21:24 rn 10/02 21:22 Order name: Vital Signs; Complete Time: 21:24 rn EC/15 23:03 Rate is 93 beats/min. Rhythm is regular. QRS [place] is Normal. AL interval is normal. QRS rn interval is normal. QT interval is normal. No Q waves. T waves are Normal. No ST changes noted. Clinical impression: NSR w/ Non-specific ST/T Changes. Interpreted by me. Reviewed by me. Administered Medications: 21:45 Drug: NS 0.9% IV 500 ml IV at bolus once Route: IV; Rate: bolus; Site: left antecubital;rv 22:19 Drug: Rocephin IV 1 grams IV at calculated rate once; Given slow IV push per pharmacy rv instructions Route: IV; Rate: calculated rate; Site: right forearm; 23:00 Follow up: IV Status: Completed infusion; IV Intake: 50ml rv 10/03 02:45 Drug: NS 0.9% IV 250 ml IV at bolus once Route: IV; Rate: bolus; Site: right forearm; km8 03:34 Follow up: IV Status: Completed infusion; IV Intake: 250ml rv Disposition Summary: 10/03/23 02:39 Discharge Ordered Notes: Location: Home rn Problem: new rn Symptoms: have improved rn Condition: Stable rn Diagnosis - Dehydration rn - Altered mental status, unspecified rn Followup: rn - With: Private Physician - When: As needed - Reason: Recheck today's complaints, Re-evaluation by your physician Discharge Instructions: - Discharge Summary Sheet rn - Confusion rn - Dehydration, Elderly rn Forms: - Medication Reconciliation Form rn - Thank You Letter rn - Antibiotic rn cvor - Prescription Opioid Use rn - Patient Portal Instructions rn - Leadership Thank You Letter rn Signatures: Dispatcher [employer] EDMS Aleksandr Avendaño MD MD rn Vicente, Ronaldo RN RN Bautista Gauthier RN RN as6 Tanesha Hernandez RN RN km8 Corrections: (The following items were deleted from the chart) 10/02 23:08 23:02 Chest Single View+RAD.RAD.BRZ ordered. EDMS EDMS 23:19 23:02 Head Brain Wo Cont+CT.RAD.BRZ ordered. EDMS EDMS 23:19 23:02 Abdomen Pelvis W Con+CT.RAD.BRZ ordered. EDMS EDMS
--- NOTE | 2023-10-03 02:40 | ER ---
Nurse's Notes [facility] Name: Cecelia Ramires Age: 88 yrs Sex: Female : 1935 Arrival Date: 10/02/2023 Time: 21:14 Bed 6 Private MD: Diagnosis: Dehydration;Altered mental status, unspecified Presentation: 10/02 21:22 Chief complaint: EMS states: called out for altered mental status. pt is currently as6 being treated for a UTI. approx 2 hours ago pt became altered. Coronavirus screen: At this time, the client does not indicate any symptoms associated with coronavirus-19. Ebola Screen: No symptoms or risks identified at this time. Initial Sepsis Screen: Does the patient meet any 2 criteria? No. Patient's initial sepsis screen is negative. Does the patient have a suspected source of infection? No. Patient's initial sepsis screen is negative. Risk Assessment: Do you want to hurt yourself or someone else? Patient reports no desire to harm self or others. Onset of symptoms was October 02, 2023. 21:22 Acuity: WILMER 2 as6 21:22 Method Of Arrival: EMS: [facility] as6 Historical: - Allergies: 21:21 No Known Allergies; as6 - PMHx: 21:21 breast cancer; Glaucoma; Hypothyroidism; Lung Cancer; as6 - PSHx: 21:21 Appendectomy; Left knee replacement; right shoulder surgery; Tonsillectomy; as6 - Immunization history:: Adult Immunizations up to date. - Social history:: Smoking status: Patient denies any tobacco usage or history of. - Family history:: not pertinent. - Hospitalizations: : No recent hospitalization is reported. Screenin:03 [facility] ED Fall Risk Assessment (Adult) History of falling in the last 3 months, rv including since admission No falls in past 3 months (0 pts) Score/Fall Risk Level 3 or more points = High Risk Oriented to surroundings, Maintained a safe environment, Educated pt \T\ family on fall prevention, incl call for assistance when getting out of bed, Assessed \T\ reinforced patient's understanding of fall precautions. Abuse screen: Denies threats or abuse. Denies injuries from another. Nutritional screening: No deficits noted. Tuberculosis screening: No symptoms or risk factors identified. Assessment: 23:03 Reassessment: Patient appears in no apparent distress at this time. Patient and/or rv family updated on plan of care and expected duration. Pain level reassessed. General: Appears comfortable, Behavior is calm, cooperative. Pain: Denies pain. Neuro: Level of Consciousness is awake, alert. Respiratory: Airway is patent Respiratory effort is even, unlabored. 10/03 00:30 Reassessment: Patient appears in no apparent distress at this time. pt sleeping at this km8 time; respirations even and unlabored. 01:00 Reassessment: Patient appears in no apparent distress at this time. No changes from km8 previously documented assessment. 02:00 Reassessment: Patient appears in no apparent distress at this time. No changes from km8 previously documented assessment. Vital Signs: 10/02 21:21 BP 156 / 93; Pulse 91; Resp 24 S; Temp 98.2(O); Pulse Ox 100% on 2 lpm NC; Weight 65.32 as6 kg (M); Height 5 ft. 5 in. (R); Pain 0/10; 22:00 BP 145 / 89; Pulse 88; Pulse Ox 100% on 2 lpm NC; km8 22:30 BP 136 / 75; Pulse 86; Pulse Ox 100% on 2 lpm NC; km8 23:17 BP 148 / 77; Pulse 85; Pulse Ox 100% on R/A; km8 23:30 BP 138 / 78; Pulse 84; Pulse Ox 100% on 2 lpm NC; km8 10/03 00:00 BP 130 / 75; Pulse 85; Pulse Ox 100% on 2 lpm NC; km8 00:30 BP 132 / 79; Pulse 85; Pulse Ox 100% on 2 lpm NC; km8 01:00 BP 148 / 82; Pulse 86; Pulse Ox 98% on 2 lpm NC; km8 01:30 BP 150 / 79; Pulse 84; Pulse Ox 100% on 2 lpm NC; km8 02:00 BP 142 / 76; Pulse 85; Pulse Ox 99% on 2 lpm NC; km8 03:33 BP 147 / 77; Pulse 81; Resp 18; Temp 98; Pulse Ox 99% on 2 lpm NC; rv 10/02 21:21 Body Mass Index 23.96 (65.32 kg, 165.1 cm) as6 10/02 21:21 Pain Scale: Adult as6 ED Course: 10/02 21:21 Patient arrived in ED. as6 21:21 Aleksandr Avendaño MD is Attending Physician. rn 21:21 Arm band placed on. as6 21:24 Triage completed. as6 21:25 Bed in low position. Call light in reach. Side rails up X2. Client placed on continuous as6 cardiac and pulse oximetry monitoring. NIBP monitoring applied. 21:25 Maintain EMS IV. Dressing intact. Good blood return noted. Site clean \T\ dry. Gauge \T\ as 6 site: 20g RAC. 21:26 Abel Ferreira, TIFFANI is Primary Nurse. rv 21:30 Inserted saline lock: 20 gauge in left antecubital area, using aseptic technique. Blood rv collected. 21:45 Inserted saline lock: 20 gauge in right forearm, using aseptic technique. Blood rv collected. 23:04 No provider procedures requiring assistance completed. rv 23:29 Head Brain Wo Cont In Process Unspecified. EDMS 23:29 Abdomen In Process Unspecified. EDMS 23:32 Chest Single View In Process Unspecified. EDMS 10/03 01:00 Cleaned of incontinence. Linen changed. km8 02:39 Aleksandr Avendaño MD is Referral Physician. rn 02:39 Referral Physician role handed off by Aleksandr Avendaño MD rn 03:34 IV discontinued, intact, bleeding controlled, No redness/swelling at site. Pressure rv dressing applied. Administered Medications: 10/02 21:45 Drug: NS 0.9% IV 500 ml IV at bolus once Route: IV; Rate: bolus; Site: left antecubital;rv 22:19 Drug: Rocephin IV 1 grams IV at calculated rate once; Given slow IV push per pharmacy rv instructions Route: IV; Rate: calculated rate; Site: right forearm; 23:00 Follow up: IV Status: Completed infusion; IV Intake: 50ml rv 10/03 02:45 Drug: NS 0.9% IV 250 ml IV at bolus once Route: IV; Rate: bolus; Site: right forearm; km8 03:34 Follow up: IV Status: Completed infusion; IV Intake: 250ml rv Medication: 10/02 23:47 VIS not applicable for this client. rv Intake: 23:00 IV: 50ml; Total: 50ml. rv 10/03 03:34 IV: 250ml; Total: 300ml. rv Outcome: 02:39 Discharge ordered by . rn 03:34 Discharged to home via ambulance, rv 03:34 Condition: good 03:34 Discharge instructions given to family, Instructed on discharge instructions, follow up and referral plans. Demonstrated understanding of instructions, follow-up care, 03:35 Patient left the ED. rv Signatures: Dispatcher [employer] EDMS Aleksandr Avendaño MD MD rn Vicente, Ronaldo RN RN Bautista Gauthier RN RN as6 Tanesha Hernandez RN RN km8 Corrections: (The following items were deleted from the chart) 02:21 01:00 Reassessment: Patient appears in no apparent distress at this time. km8 km8
[2023-10-03] MEDS ORDERED: NA CHLORIDE 0.9% 250 ML ONE (02:42)
[2023-10-03 10:11] VITALS: O2SAT 99
[2023-10-03 10:16] VITALS: BP 147/77; TEMP 98
--- NOTE | 2023-10-05 12:32 | EKG ---
Test Date: 2023-10-02 Test Time: 21:38:27 Abattoir Supervisor: CONNIE MEASUREMENT RESULTS: Intervals: Rate: 93 WV: 166 QRSD: 74 QT: 346 QTc: 430 [place]: P: 61 WV: 166 QRS: 39 T: 65 INTERPRETIVE STATEMENTS: Normal sinus rhythm Nonspecific T wave abnormality Abnormal ECG Compared to ECG 06/21/2023 23:04:42 Sinus arrhythmia no longer present Possible ischemia no longer present T-wave abnormality still present Electronically Signed On 10-05-23 12:27:17 CHIEF SERVICE DISPATCHER by Kemar Argueta
--- NOTE | 2023-10-05 17:03 | RAD REPORT ---
EXAM DESCRIPTION: CT Abdomen and Pelvis With Intravenous Contrast CLINICAL HISTORY: CONFUSED TECHNIQUE: Axial computed tomography images of the abdomen and pelvis with intravenous contrast. S agittal and coronal reformatted images were created and reviewed. This CT exam was performed using one or more of the following dose reduction techniques: automated exposure control, adjustment of t he mA and/or kV according to patient size, and/or use of iterative reconstruction technique. COMPARISON: No relevant prior studies available. FINDINGS: Lung bases: Bibasilar subsegmental atelectasis/pleural parenchymal scar. Scattered sma ll pulmonary nodules. An index right middle lobe nodule on series 301 image 4 measures 4 mm. Heart: The heart is mildly enlarged. ABDOMEN: Liver: The liver is enlarged. There are innumerable heterogeneous lesions within the liver, the lar gest right anterior measuring 7.5 cm. Gallbladder and bile ducts: Gallstones within an otherwise normal-appearing gallbladder. No ducta l dilation. Pancreas: Mild pancreatic parenchymal atrophy. No ductal dilation. Spleen: Unremarkable. No splenomegaly. Adrenals: Unremarkable. No mass. Kidneys and ureters: Normal renal cortical enhancement bilaterally. 1.7 cm left renal cyst. No foll ow-up imaging is recommended. JACR 2018 Nov; 264-273, Management of the Incidental Renal Mass on CT, [employer] 2020; 814-848, Bosniak Classification of Cystic Renal Masses, Version 2019. No calculi. No hydronephrosis. Stomach and bowel: Moderate stool. No bowel obstruction. No appreciable mucosal thickening. PELVIS: Appendix: The appendix is not definitively visualized. No findings to suggest acute appendicitis. Bladder: The urinary bladder is distended. Reproductive: There has been a hysterectomy. No adnexal cysts or masses are identified. Subperitoneal space: Presacral edema and fluid. ABDOMEN and PELVIS: Intraperitoneal space: Unremarkable. No free air. No significant fluid collection. Bones/joints: Multilevel spondylosis. Numerous sclerotic osseous lesions. No acute fracture. No dislocation. Soft tissues: Small fat-containing left inguinal hernia. Vasculature: Moderate atherosclerotic disease. No abdominal aortic aneurysm. Lymph nodes: Unremarkable. No enlarged lymph nodes. IMPRESSION: 1. 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 P lease correlate with known malignancy. 2. Other findings as above. Electronically signed by: Samantha Tompkins MD 10/03/2023 12:10 AM FISH DRIER Due to temporary technical issues with the PACS/Fluency reporting system, reports are being signed by the in house radiologists without review as a courtesy to insure prompt reporting. The interpreting radiologist is fully responsible for the content of the report.
--- NOTE | 2023-10-05 17:06 | RAD REPORT ---
EXAM DESCRIPTION: CT Head Without Intravenous Contrast CLINICAL HISTORY: The patient is 88 years old and is Female; CONFUSED TECHNIQUE: Axial computed tomography images of the head/brain without intravenous contrast. Sagitt al and coronal reformatted images were created and reviewed. This CT exam was performed using one o r more of the following dose reduction techniques: automated exposure control, adjustment of the mA and/or kV according to patient size, and/or use of iterative reconstruction technique. COMPARISON: No relevant prior studies available. FINDINGS: Brain: Mild nonspecific white matter changes likely related to chronic microvascular isc hemic disease. Mild cerebral atrophy. No hemorrhage. Ventricles: Unremarkable. No ventriculomegaly. Bones/joints: Unremarkable. No acute fracture. Soft tissues: Unremarkable. Sinuses: Unremarkable as visualized. Mastoid air cells: Unremarkable as visualized. No mastoid effusion. IMPRESSION: No acute intracranial abnormality. Electronically signed by: Sergio Vines MD 10/03/2023 12:03 AM AUTO WINDER Due to temporary technical issues with the PACS/Fluency reporting system, reports are being signed by the in house radiologists without review as a courtesy to insure prompt reporting. The interpreting radiologist is fully responsible for the content of the report.
--- NOTE | 2023-10-05 17:07 | RAD REPORT ---
EXAM DESCRIPTION: XR Chest, 1 View CLINICAL HISTORY: The patient is 88 years old and is Female; PAIN TECHNIQUE: Frontal view of the chest. COMPARISON: No relevant prior studies available. FINDINGS: LUNGS: The lungs are hyperinflated with coarse interstitial markings. There is no lobar consolidation. PLEURAL SPACE: Unremarkable. No pneumothorax. HEART: Cardiac silhouette is prominent. MEDIASTINUM: Unremarkable. Normal mediastinal contour. BONES/JOINTS: Right shoulder prosthesis is present. Extensive degenerative change of the bones is noted. No acute fracture. UPPER ABDOMEN: Unremarkable as visualized. IMPRESSION: No acute cardiopulmonary process. Electronically signed by: Joya Zayas MD 10/03/2023 12:02 AM MERCHANDISE CLERK Due to temporary technical issues with the PACS/Fluency reporting system, reports are being signed by the in house radiologists without review as a courtesy to insure prompt reporting. The interpreting radiologist is fully responsible for the content of the report.
== END 2023-10-03 03:35 | disposition home or self-care (01) ==
LOC: ER 21:14
DX: R41.82 Altered mental status, unspecified (principal); E86.0 Dehydration; E03.9 Hypothyroidism, unspecified; Z85.3 Personal history of malignant neoplasm of breast; Z85.118 Personal history of other malignant neoplasm of bronchus and lung
CPT/HCPCS: 96365; 96361; 93005; 87040 ×2; 85025; 36415; 85610; 83605; 85730; 81003; 80053; 70450; 74177; 71045; 99285; Q9967; J0696